=== PATIENT | female | born 1960 ===

== ENCOUNTER 2020-04-21 13:12 | Outpatient (REF) | payer BC, SELFPAY ==
[2020-04-21 15:55] LABS: Anion Gap 13 (12-20); Blood Urea Nitrogen 14 mg/dL (9-16); Calcium 9.9 mg/dL (8.4-10.2); Carbon Dioxide 30 mmol/L (22-29); Chloride 103 mmol/L (96-108); Estimated Glomerular Filt Rate > 60; Glucose Random 90 mg/dL (60-115); Lactate Dehydrogenase 239 U/L (122-220); Magnesium 2.3 mg/dL (1.6-2.6); Potassium 4.7 mmol/L (3.3-5.1); Sodium 141 mmol/L (135-145)
[2020-04-21 16:23] LABS: Erythrocyte Sedimentation Rate 8 MM/HR (0-20)
[2020-04-24 12:56] LABS: Anti Nuclear Antibody Screen NEGATIVE (NEGATIVE)
== END 2020-04-21 13:13 | disposition home or self-care (01) ==
LOC: HO.LAB 13:12
PROVIDERS: PCP Internal Medicine; Visit Provider Hospitalist
DX: R06.6 Hiccough (principal); G24.4 Idiopathic orofacial dystonia; R91.8 Other nonspecific abnormal finding of lung field; R07.9 Chest pain, unspecified; Z79.899 Other long term (current) drug therapy; Z87.891 Personal history of nicotine dependence
CPT/HCPCS: 36415; 80048; 82550; 83615; 83735; 85652; 86038; 86039

== ENCOUNTER → 2020-05-26 09:44 | Outpatient (BNVA) | payer BC, SELFPAY | PROVIDERS: PCP Internal Medicine; Visit Provider Hospitalist | DX: R07.9 Chest pain, unspecified (principal) ==

== ENCOUNTER → 2020-08-07 15:04 | Outpatient (BNVA) | payer BC, SELFPAY | PROVIDERS: PCP Internal Medicine; Visit Provider Hospitalist | DX: R07.9 Chest pain, unspecified (principal) ==

== ENCOUNTER 2020-08-15 15:34 | Outpatient (REF) | payer BC, SELFPAY ==
--- NOTE | 2020-08-15 17:22 | PFT_ITS ---
Forced vital capacity, FEV1, RLP06-35, and MVV are all normal. Post bronchodilator therapy, there is no significant change. Total lung capacity and residual volume normal. Diffusion capacity normal. CONCLUSION: Normal pulmonary function test. No evidence of obstructive or restrictive pulmonary disorder. Adelita Elizondo MD MSB/MODL / [id number]
== END 2020-08-15 15:35 | disposition home or self-care (01) ==
LOC: HO.RESP 15:34
PROVIDERS: PCP Internal Medicine; Visit Provider Hospitalist
DX: J44.9 Chronic obstructive pulmonary disease, unspecified (principal)
CPT/HCPCS: 94060; 94727; 94729

== ENCOUNTER → 2021-04-27 14:41 | Outpatient (BNVA) | payer BC, SELFPAY | PROVIDERS: PCP Internal Medicine; Visit Provider Hospitalist ==

== ENCOUNTER 2022-04-29 11:17 | Outpatient (REF) | payer BC, SELFPAY ==
[2022-04-29 12:21] LABS: MANUAL DIFF FLAG NO
[2022-04-29 12:29] LABS: Basophils Absolute Auto 0.1 X10*3/uL (0.0-0.2); Eosinophils Absolute Auto 0.1 X10*3/uL (0.0-0.4); Eosinophils Percent Auto 1.3 % (0-4); Hematocrit 41.1 % (37.0-47.0); Hemoglobin 13.7 g/dl (12.0-16.0); Imm Gran Abs Auto 0.01 X10*3/uL (0.00-0.03); Imm Gran Pct Auto 0.2 % (0.0-0.4); Lymphocytes Absolute Auto 1.6 X10*3/uL (1.2-4.9); Lymphocytes Percent Auto 30.7 % (20-40); Mean Corpuscular HGB Conc 33.3 g/dl (31.0-35.0); Mean Corpuscular Hemoglobin 31.6 pg (27.0-33.0); Mean Corpuscular Volume 94.7 fL (80.0-98.0); Monocytes Absolute Auto 0.3 X10*3/uL (0.1-1.2); Monocytes Percent Auto 6.1 % (2-11); Neutrophils Absolute Auto 3.2 x10*3/uL (2.0-8.3); Neutrophils Percent Auto 60.7 % (45-73); Platelet Count 303 X10*3/uL (160-400); Red Blood Count 4.34 X10*6/uL (4.20-5.50); Red Cell Distribution Width 11.9 % (11.0-16.0); White Blood Count 5.2 X10*3/uL (4.8-10.8)
[2022-04-29 12:49] LABS: D Dimer High Sensitivity < 150 NG/ML
[2022-04-29 13:14] LABS: Erythrocyte Sedimentation Rate 6 MM/HR (0-20)
[2022-04-29 13:25] LABS: Anion Gap 7 (12-20); Blood Urea Nitrogen 14 mg/dL (9-16); Calcium 9.2 mg/dL (8.4-10.2); Carbon Dioxide 29 mmol/L (22-29); Chloride 107 mmol/L (96-108); Estimated Glomerular Filt Rate > 60; Glucose Random 87 mg/dL (60-115); Potassium 4.4 mmol/L (3.3-5.1); Sodium 139 mmol/L (135-145)
[2022-05-01 07:34] LABS: Scleroderma 70 Antibody <1.0 NEG AI (<1.0 NEG)
[2022-05-03 15:08] LABS: Anti Nuclear Antibody Screen NEGATIVE (NEGATIVE)
== END 2022-04-29 11:18 | disposition home or self-care (01) ==
LOC: HO.LAB 11:17
PROVIDERS: PCP Physician Assistant; Visit Provider Hospitalist
DX: R07.81 Pleurodynia (principal)
CPT/HCPCS: 36415; 80048; 85025; 85379; 85652; 86038; 86039; 86235

== ENCOUNTER → 2022-07-09 10:18 | Outpatient (BNVA) | payer BC, SELFPAY | PROVIDERS: PCP Physician Assistant; Visit Provider Hospitalist | DX: R07.81 Pleurodynia (principal) ==

== ENCOUNTER 2022-12-31 16:00 | Outpatient (AMB) | payer BC, SELFPAY ==
[2022-12-31 16:12] VITALS: BP 112/62; PULSE 69; O2SAT 100; BMI 22.7
--- NOTE | 2022-12-31 16:12 | MHC.OFFVIS ---
Intake Vital Signs 12/31/22 16:12 Height 5 ft 3 in Weight 128 lb BMI 22.7 BP 112/62 Blood Pressure Location Lt brachial Position Sitting Pulse 69 Pulse Oximetry (%) 100 Oxygen Delivery Method Room Air Intake Visit Reasons: COPD Correctional Supervisor: Correctional Supervisor offered & declined Accompanied by: Self / Same As Patient Allergies No Known Allergies Allergy (Verified 12/31/22 16:18) Medication List - Last Reconciled 12/31/22 by Briana Arredondo LPN cholecalciferol (vitamin D3) 25 mcg PO DAILY lactobacillus combination no.9 (Adult 50 Plus Probiotic) 4,000 mmu cells PO DAILY HPI COPD HPI Details Luz Maria is a pleasant 62 year old female, former smoker, followed for COPD, pulmonary nodules and dystonia of jaw receiving botox. At baseline she is controlled without any respiratory medications. Today she presents for an acute visit. She reports having COVID in November then diagnosed with bronchitis three weeks later and then prescribed prednisone as well as an ICS with persistent symptoms. She was seen at urgent care, CXR revealed a patchy right lung base infiltrate and started on vantin and azithromycin. She does not feel back to baseline, continuing with fatigue. She also reports persistent discomfort of the left chest that has been ongoing for over a year. She reports cardiac evaluation which was unremarkable and has an upcoming mammogram with ultrasound, as the area is just below her left breast with noted thickening of breast tissue. [facility] Medical History (Updated 01/14/23 @ 09:15 by Danitza Brantley NP) Dystonia Spasm of diaphragm COPD (chronic obstructive pulmonary disease) Pulmonary nodules Personal history of nicotine dependence Chest pain Hyperlipidemia Coronary artery calcification Mild ascending aorta dilatation History of bacterial meningitis in childhood Surgical History (Updated 12/26/22 @ 11:01 by Kayleigh Reardon PA-C) History of knee surgery History of carpal tunnel surgery of left wrist History of shoulder replacement History of 2 sections (Updated 12/31/22 @ 16:21 by Briana Arredondo LPN) Patient Tobacco Use Status: Former Tobacco user Tobacco use type: Cigarette Years Smoked: 17 years old Smoked in Last 30 Days: No Review of Systems ENT Reports Normal hearing present Neuro Reports Normal hearing present Physical Exam Vital Signs: Last Vital Signs Pulse 69 12/31/22 16:12 BP 112/62 12/31/22 16:12 Pulse Ox 100 12/31/22 16:12 Oxygen Delivery Method Room Air 12/31/22 16:12 BMI result Body Mass Index 22.7 Const General: cooperative, healthy appearing, comfortable, no acute distress, well developed and alert Orientation/consciousness: patient oriented x3 Limitations: no limitations HEENT Head: Yes normal to inspection, Yes normocephalic and Yes atraumatic Ears: hearing grossly normal bilaterally and external ears normal Eyes General: appearance normal, both eyes and all related structures Eyelids: Yes eyelids normal Sclerae: sclerae normal EOM: EOMs intact bilaterally Neck Neck: Yes normal visual inspection and Yes no lymphadenopathy Lymphatic: no lymphadenopathy noted Chest Other: thickened skin and discomfort with palpation of left lower breast 6 oclock, compared to right, no erythema noted Chest palpation & inspection: normal inspection of the chest Resp Effort & Inspection: normal respiratory effort, able to speak in complete sentences, no audible wheezes, no cough, no stridor, not tachypneic, no tripod positioning and no use of accessory muscles Auscultation: clear to auscultation bilaterally Cardio Jugular venous distension: no JVD Rate: regular rate Rhythm: regular rhythm Skin Other: warm, dry General skin exam: no rashes or lesions noted Neuro General: patient oriented x3 Cranial nerves: Yes Normal hearing present Cognition (Neuro): normal cognition Gait exam (Neuro): Normal gait present Extrem General: Yes normal to inspection, Yes capillary refill normal, Yes no clubbing, cyanosis or edema and Yes no pedal edema Psych Appearance: grossly normal and well kempt Speech and movement: Normal speech and movement present and Clear speech present Affect: normal affect Attitude: cooperative Thought process: Normal thought process present Thought content: Normal thought content present Insight: Good insight present (Psych) Judgement: Good judgement present (Psych) Assessment & Plan Assessment & Plan (1) COPD (chronic obstructive pulmonary disease): Code(s): J44.9 - Chronic obstructive pulmonary disease, unspecified Qualifiers: COPD type: emphysema Emphysema type: centrilobular Qualified Code(s): J43.2 - Centrilobular emphysema (2) Pulmonary nodules: Code(s): R91.8 - Other nonspecific abnormal finding of lung field (3) Dystonia: Code(s): G24.9 - Dystonia, unspecified Plan At this time, exam unremarkable and was treated with antibiotics/prednisone. Lungs sound clear. Advised patient to start ICS inhaler prescribed by urgent care for the next few weeks. If no improvements, call office. In regards to left chest discomfort, discussed importance of obtaining mammogram/ultrasound due to thickening and reproducible pain. If worsens, advised to seek emergent care. Will also obtain chest CT report from [facility] and upload to our system. All questions were answered and patient is in agreement of plan. Will follow up for regularly scheduled appointment with Dr. Griffin or sooner if needed. Coding Level of Care Code Est Pt Level 4 (98637) Diagnoses Centrilobular emphysema J43.2 COPD type: emphysema Emphysema type: centrilobular Pulmonary nodules R91.8 Dystonia G24.9
== END 2022-12-31 16:49 | disposition home or self-care (01) ==
PROVIDERS: PCP Physician Assistant; Visit Provider Nurse Practitioner Family
DX: J43.2 Centrilobular emphysema (principal); R91.8 Other nonspecific abnormal finding of lung field; G24.9 Dystonia, unspecified
CPT/HCPCS: 99214

== ENCOUNTER → 2022-12-31 16:00 | Outpatient (BNVA) | payer BC, SELFPAY | PROVIDERS: PCP Physician Assistant; Visit Provider Nurse Practitioner Family ==

== ENCOUNTER 2023-02-21 15:25 | Outpatient (AMB) | payer BC, SELFPAY ==
[2023-02-21 15:32] VITALS: PULSE 74; O2SAT 96; BMI 22.5
--- NOTE | 2023-02-21 15:32 | MHC.OFFVIS ---
Intake Vital Signs 02/21/23 15:32 Height 5 ft 3 in Weight 127 lb BMI 22.5 Pulse 74 Pulse Source Pulse Oximeter Pulse Oximetry (%) 96 Oxygen Delivery Method Room Air Intake Visit Reasons: COPD Allergies No Known Allergies Allergy (Verified 02/21/23 15:33) HPI HPI Comments History of Present Illness Details The patient is a 62-year-old woman with a known history of pulmonary nodules and history of smoking history with a new diagnosis of dystonia that she has been dealing with currently getting Botox shot to her jaw. When she walks a goes up hills or flights of stairs she does get more shortness of breath. It a becomes that her dystonia causes more shifting of her jaw and to some degree obstructing the upper airway causing her to have a hard time with her breathing due to increased resistance. She does use a mouth guard due to her grinding. We did look at her CT scan of the chest that she had back in March 2019 this was a low-dose steroid radiation CT scan demonstrated no evidence of any lymphadenopathy and she does have bilateral pulmonary nodules. Based on the fact that the have been stable she will get a CT scan in a year's time. In the office we did do spirometry demonstrating normal flow volume loop without any evidence of any dynamic extrathoracic or intrathoracic obstruction at this time. 11/01/2019 The patient is here for pulmonary follow-up visit. Overall the patient has been doing relatively well. However, she has been complaining of some left-sided chest discomfort. It is reproducible on his right over the rib below her left breast. She had a bone scan done which picked up some increased activity but a right rib was likely due to trauma. She did have a CT scan of the chest back in May 2019 that did not show any abnormalities in that area. Her pulmonary nodules have been stable. She is following the lung cancer screening program and is scheduled to have a repeat CAT scan May 2020. She also complains of some discomfort primarily around the diaphragmatic area. She is wondering if is her diaphram. She also has a history of dystonia. Explained to her she can use some baclofen. She does have some home she will consider starting that at this time for diaphragmatic spasms. 04/21/2020 the patient is here for pulmonary follow-up visit. She continues to have the same ongoing issues. Significant anabel facial dystonia involving the oral mandibular area on her left side. Also when she exercises primarily a aerobic her dystonia gets worse and also has a hard time with her breathing. She did have an evaluation by ENT and laryngoscopy did not demonstrate any laryngeal spasms at rest. However, they could potentially having with activity as her symptoms worsen with activity. She has been getting Botox to her face but does not feel like she is getting any significant improvement. If anything she feels a little bit worse. She is considering stopping the therapy. She is also using back up from. She has been complaining of some chest discomfort bilaterally primarily in the lower part of her chest. I do believe that this may be diaphragmatic spasms. She has not gotten any relief meds medications. We did think about although alternative medications we can use for her diaphragmatic spasm such as calcium channel blockers or neuroleptic medications. At this point will try the calcium channel blockers at low dose monitor closely her heart rate and blood pressure. Patient did have a CT scan of the chest demonstrating stable pulmonary nodules. No pathological process to explain chest discomfort at this time. 05/26/2020 the patient is here for pulmonary follow-up visit. Since we last spoke she had a follow-up with her primary care doctor because of ongoing epigastric discomfort. She did have a CT scan demonstrated some thickening of the esophagus area. She will be undergoing endoscopy soon. With all the medical issues she did not have enough time to start the calcium channel celine. She actually took it for about a day. Based on her ongoing GI evaluation he should hold off on the calcium channel celine in case it masks any findings esophageal dysmotility. In the meantime the patient is having difficulty sleeping at nighttime. She is still concerned about the significant spasms. Therefore will try some Neurontin to see if this helps with dystonia specially with her significant discomfort the area of the diaphragms suggesting some degree of diaphragmatic spasms. The Neurontin hopefully will help with the symptoms and also helpful with her sleep quality. 08/07/2020 the patient is here for pulmonary follow-up visit. Her symptoms continue to persist. She is complaining of significant shortness of breath with activity. She is wondering if she has any evidence of any emphysema that could be contributing to her symptoms. We did review her CT scan demonstrating some mild emphysema. Although is minimal and is unlikely to be playing a role it is reasonable to treat her for obstructive airway disease and air trapping. We did talk about different methods to control her breathing when exercising such as pursed lip breathing or using a straw. In the meantime it is reasonable to try Anoro as a long-acting bronchodilator to see if there is any improvement in her dyspnea symptoms with activity. Explained to her that I do believe that her upper airway obstruction due to the dystonia is likely playing a significant role and then ultimately resulting in potential breath stacking if she does have tachypnea. Initially she was reluctant to try gabapentin as she tried it in the past. But I do believe that a small dose specially at nighttime will be tolerable to her specially if she gives it enough time to overcome the initial adverse effects. Therefore she is willing to start small dose which she can then increase if she can not tolerated up to 200 mg. At this point will have her come back and undergo pulmonary function studies with her follow-up visit. 04/27/2021 the patient is here for a pulmonary follow-up visit. Overall she is about the same. She continues to exercise regularly. Although becomes very short of breath with activity. Partly because of her dystonia resulting in a upper airway resistance causing increased work of breathing. Lung capacity otherwise is within normal limits. She does have underlying pulmonary nodules and history of smoking in the past. Patient's CT scan done [facility] back in 2020 demonstrating no significant changes in her pulmonary nodules which are very small and likely benign. The patient has been working with different providers regarding her dystonia. Currently getting Botox to see if this provides some benefit. In the meantime she has tried alternative therapies as well as muscle relaxants. She is considering using cannabinoids. I did recommend that if she does use she should not smoke it. She can consider tinctures and she should also consider having it without any THC which is the hallucinogenic component. 04/29/2022 the patient is here for a pulmonary follow-up visit. The patient feels like she is getting worse. Complaining of rib discomfort in addition to the inability to expand her lower ribcage. She has some discomfort primarily on the left lower area where she feels like the ribs are hoping out a little bit. The patient has worse symptoms typically in the morning when she wakes up. She also has a hard time making on her left side. In addition to this the patient complains right antecubital pain. She feels like her veins are inflamed. I do not feel a cord in a see any erythema to suggest superficial thrombophlebitis. But, will request a D-dimer in addition to additional blood work looking for other inflammatory conditions. She may have a lot of musculoskeletal issues that are affecting her typically in the morning. I do believe to that her diaphragms may be having episodes of spasms back in given that sensation of discomfort. The patient does have dystonia. Will trial a short course of prednisone to see if we can provide some anti-inflammatory effect of that area. The patient also undergo her blood work. I will let her know the results. In addition to that she recently had a CT scan of the chest. I am requesting the report. She does have pulmonary nodules and based on the lung cancer screening program she is scheduled for the CT scan in a year's time which is reassuring. We did talk about different herbal remedies that she can try such as taking turmeric. In addition to that she is having hard time sleeping. She was given a sleep aid from her primary care doctor although she has not tried as of yet. 07/09/2022 the patient is here for pulmonary follow-up visit. She continues to be about the same. She did have a upper GI series at [facility] where demonstrated that she probably has a small hiatal hernia and also possibly esophagitis and gastritis along with a potential small peptic ulcer. The patient is no longer taking prednisone she will need to go for brief course. In addition to that the patient had been using NSAIDs specially at nighttime. When she understands that she should use those for now. She does have a follow-up with her GI specialist. In the meantime her CT scan of the chest was done at [facility] and is not demonstrating any significant changes when compared to previous. She does have some thickening of the pleura and some nodules are stable. The patient continues to have the issues with dystonia that is causing an upper airway dynamic obstruction when she exercises at least with aerobic exercise. Even while using the Will Botox. One option to the patient is to use a oral mandibular device to main thetain patency of her upper airway without obstructing it. The patient is also having insomnia. Typically able to fall asleep but then wakes up in the middle the night and can not get back to sleep. She has been [id number] sleep aids. The patient is willing to try trazodone. Will give her small dose that she can use see this is better as far as providing better sleep hygiene. 02/21/2023 the patient is here for a pulmonary follow-up visit. The patient overall is no better. She continues to have the significant shortness of breath with Exertion. She has a hard time in the gym. I do believe that most of her symptoms are due to the distal new resulting in a dynamic upper airway obstruction. She has already had if will cardiac workup. She was severity evaluated by GI without any significant findings. The patient has been describing also some right and left upper abdominal discomfort, but, now migrating now more in the epigastric area and xiphoid area. The area is very tender. When she does cross training becomes very uncomfortable at times. It appears to be musculoskeletal as well. It is pretty much reproducible my examination suggesting that is costochondritis. During the office visit we did go for a walking oximetry test we did go 5 flights of stairs. The patient was able to complete the 5 flights although she was winded with dyspnea score of 7/10. Pulse ox is stable she definitely had the facial dystonia during the increase exercise. Heart rate did increase to 130 beats per minute which may also be contributing. At this point the patient would like to get answers. Will go ahead and request an exercise tolerance test at [facility]. In addition to that she does wake up short of breath. She does have increased daytime drowsiness with an Eastman score of 10/24. Will go ahead and request a home sleep study at this time. [facility] Medical History (Updated 02/23/23 @ 22:51 by Luis Griffin MD) Costochondritis Dystonia Spasm of diaphragm COPD (chronic obstructive pulmonary disease) Pulmonary nodules Personal history of nicotine dependence Chest pain Hyperlipidemia Coronary artery calcification Mild ascending aorta dilatation History of bacterial meningitis in childhood Surgical History (Updated 12/26/22 @ 11:01 by Kayleigh Reardon PA-C) History of knee surgery History of carpal tunnel surgery of left wrist History of shoulder replacement History of 2 sections Social History (Updated 12/31/22 @ 16:21 by Briana Arredondo LPN) Patient Tobacco Use Status: Former Tobacco user Tobacco use type: Cigarette Years Smoked: 17 years old Review of Systems Const Reports daytime sleepiness, Reports difficulty sleeping and Denies night sweats ENT Denies change in voice, Reports facial pain, Denies lip swelling, Denies mouth pain, Reports nasal congestion, Reports nasal discharge, Reports neck pain and Denies tongue swelling Card Reports chest pain, Reports dyspnea and Reports dyspnea on exertion Resp Reports cough, Reports dyspnea and Reports dyspnea on exertion GI Reports abdominal pain, Reports GI cramping and Reports dyspepsia Musc Denies no additional complaints and Reports neck pain Neuro Denies Neuro-related abnormal movements Psych Denies no additional complaints Josse/Lymph Denies easy bleeding and Denies lymphadenopathy Aller/Immun Denies lip swelling and Denies tongue swelling Physical Exam Vital Signs: Last Vital Signs Pulse 74 02/21/23 15:32 Pulse Ox 96 02/21/23 15:32 Oxygen Delivery Method Room Air 02/21/23 15:32 BMI result Body Mass Index 22.5 Const General: alert HEENT Head: Yes other (facial dystonic, severe with activity) Neck Neck: Yes normal visual inspection, Yes full ROM and Yes no lymphadenopathy Chest Chest palpation & inspection: localized rib tenderness with anteroposterior compression Resp Auscultation: clear to auscultation bilaterally Cardio Rate: regular rate Rhythm: regular rhythm Heart sounds: S1 normal heart sound present and S2 normal heart sound present GI Palpation (GI): Soft to palpation and nontender Auscultation: normal bowel sounds Skin General skin exam: rashes and/or lesions noted Assessment & Plan Assessment & Plan (1) COPD (chronic obstructive pulmonary disease): Code(s): J44.9 - Chronic obstructive pulmonary disease, unspecified Qualifiers: COPD type: emphysema Emphysema type: centrilobular Qualified Code(s): J43.2 - Centrilobular emphysema (2) Pulmonary nodules: Code(s): R91.8 - Other nonspecific abnormal finding of lung field (3) Dystonia: Code(s): G24.9 - Dystonia, unspecified (4) Costochondritis: Code(s): M94.0 - Chondrocostal junction syndrome [Tietze] Plan OTC analgesics for MS pain CPET to address her on going dyspnea, getting worse. Dystonic likely contributing CT chest to address her pulmonary nodules PSG to assess GILMAR and daytime drowsiness F/U 3-4 months Orders: Orders CT chest wo IV con 04/28/23 R91.8 - Other nonspecific abnormal finding of lung field CA cardiopulmonary stress test Today R06.00 - Dyspnea, unspecified RT home sleep study Today G47.33 - Obstructive sleep apnea (adult) (pediatric) Medications: New prednisone 20 mg PO DAILY 10 tabs 0RF 10 days R91.8 - Other nonspecific abnormal finding of lung field Coding Level of Care Code Est Pt Level 4 (09160) Diagnoses Centrilobular emphysema J43.2 COPD type: emphysema Emphysema type: centrilobular Pulmonary nodules R91.8 Dystonia G24.9 Costochondritis M94.0 Time Spent (min) 22
== END 2023-02-21 16:01 | disposition home or self-care (01) ==
PROVIDERS: PCP Physician Assistant; Visit Provider Hospitalist
DX: J43.2 Centrilobular emphysema (principal); R91.8 Other nonspecific abnormal finding of lung field; G24.9 Dystonia, unspecified; M94.0 Chondrocostal junction syndrome [Tietze]
CPT/HCPCS: 99214

== ENCOUNTER → 2023-02-21 15:25 | Outpatient (BNVA) | payer BC, SELFPAY | PROVIDERS: PCP Physician Assistant; Visit Provider Hospitalist ==

== ENCOUNTER → 2023-04-17 07:52 | Outpatient (REF) | payer BC, SELFPAY | LOC: HO.SL 07:52 | PROVIDERS: PCP Physician Assistant; Visit Provider Hospitalist | DX: G47.33 Obstructive sleep apnea (adult) (pediatric) (principal) | CPT/HCPCS: 95806 ==

== ENCOUNTER → 2023-04-17 08:11 | Outpatient (BNV) | payer BC, SELFPAY | PROVIDERS: PCP Physician Assistant; Visit Provider Internal Medicine | DX: R06.83 Snoring (principal) | CPT/HCPCS: 95806 ==

== ENCOUNTER 2023-04-21 10:29 | Outpatient (REF) | payer BC, SELFPAY ==
--- NOTE | ~2023-04-21 | CT_ITS ---
EXAMINATION: CT CHEST WITHOUT CONTRAST CLINICAL INFORMATION: Other nonspecific abnormal finding of lung field COMPARISON: Previous chest CT February 2016 TECHNIQUE: Multidetector volumetric CT imaging of the chest was done. Axial MIP volume rendering provided. Sagittal and coronal reformatted images were obtained. This CT examination was performed using dose optimization techniques as appropriate, variously including the following: *Automated exposure control *Adjustment of mA and/or kV according to patient size (this includes techniques or standardized protocols for targeted exams where dose is matched to indication/reason for exam; i.e. extremities or head) *Use of iterative reconstruction technique DLP: 227 mGy-cm FINDINGS: LUNGS: 3 mm right upper lobe nodule axial image 180 series 5. 2 x 5 mm peripheral or subpleural right middle lobe nodule adjacent to the minor fissure axial image 292 series 5. 3 mm groundglass attenuation left upper lobe nodule axial image 97 series 5. These are stable from February 2016 exam. No new pulmonary nodule. No evidence of an edema and show lung disease or bronchiectasis. No endobronchial or endotracheal lesion. MEDIASTINUM: The mediastinum is normal. CORONARY ARTERY CALCIFICATION: Mild coronary artery and aortic valve PLEURA: There is no pleural effusion. No pleural mass or thickening. Small right posterior diaphragmatic hernia containing. AXILLA: No lymphadenopathy. UPPER ABDOMEN: Unremarkable. OSSEOUS STRUCTURES: Orthopedic hardware in the right shoulder. Mild degenerative changes of the spine. CT/CT chest wo IV con IMPRESSION: Stable small pulmonary nodules, largest measuring 2 x 5 mm in the right middle lobe, from [address] scan. No additional chest CT follow-up of pulmonary nodules recommended. Fleischner guidelines were followed.
== END 2023-04-21 10:30 | disposition home or self-care (01) ==
LOC: HO.CT 10:29
PROVIDERS: PCP Physician Assistant; Visit Provider Hospitalist
DX: R91.8 Other nonspecific abnormal finding of lung field (principal)
CPT/HCPCS: 71250

== ENCOUNTER 2023-05-16 15:39 | Outpatient (AMB) | payer BC, SELFPAY ==
[2023-05-16 15:42] VITALS: PULSE 64; O2SAT 99; BMI 22.7
--- NOTE | 2023-05-16 15:42 | MHC.OFFVIS ---
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 When she walks a goes up hills or flights of stairs she does get more shortness of breath. It a becomes that her dystonia causes more shifting of her jaw and to some degree obstructing the upper airway causing her to have a hard time with her breathing due to increased resistance. She does use a mouth guard due to her grinding. We did look at her CT scan of the chest that she had back in March 2019 this was a low-dose steroid radiation CT scan demonstrated no evidence of any lymphadenopathy and she does have bilateral pulmonary nodules. Based on the fact that the have been stable she will get a CT scan in a year's time. In the office we did do spirometry demonstrating normal flow volume loop without any evidence of any dynamic extrathoracic or intrathoracic obstruction at this time. 02/21/2023 the patient is here for a pulmonary follow-up visit. The patient overall is no better. She continues to have the significant shortness of breath with Exertion. She has a hard time in the gym. I do believe that most of her symptoms are due to the distal new resulting in a dynamic upper airway obstruction. She has already had if will cardiac workup. She was severity evaluated by GI without any significant findings. The patient has been describing also some right and left upper abdominal discomfort, but, now migrating now more in the epigastric area and xiphoid area. The area is very tender. When she does cross training becomes very uncomfortable at times. It appears to be musculoskeletal as well. It is pretty much reproducible my examination suggesting that is costochondritis. During the office visit we did go for a walking oximetry test we did go 5 flights of stairs. The patient was able to complete the 5 flights although she was winded with dyspnea score of 7/10. Pulse ox is stable she definitely had the facial dystonia during the increase exercise. Heart rate did increase to 130 beats per minute which may also be contributing. At this point the patient would like to get answers. Will go ahead and request an exercise tolerance test at [facility]. In addition to that she does wake up short of breath. She does have increased daytime drowsiness with an [place] score of 10/24. Will go ahead and request a home sleep study at this time. 05/16/2023 the patient is here for a pulmonary follow-up visit. She continues to have dyspnea on exertion. moderate severity. In part has do with her dystonia limiting her upper ventilation. She did undergo a cardiopulmonary exercise tolerance test at [facility]. She did wear a mouthpiece. While wearing the mouthpiece she did feel like she could actually exercise longer than usual which is reassuring. Although she did not meet her aerobic capacity. The biggest limitation was more of a cardiovascular limitation. The heart rate the not reach peak in yet, but, the patient could no longer exercise as she did her maximum exercise capacity. She had plenty of pulmonary reserve suggesting that it was not a pulmonary limitation. Again, the mouthpiece did help her breathing. I did provide her a mouth guard that she can use while exercising in the home that will allow her upper airway to stay patent while she develops significant dystonia. She does have a bell valet. She recently was seen by bell valet. And from a cardiac standpoint seems like the patient is doing well. In view of the abnormal cardiopulmonary exercise tolerance test, however, consider repeating her cardiac stress test potentially a nuclear stress test to further follow-up the abnormal findings. The patient also continues to have chest discomfort. Appears to be musculoskeletal in nature. I suspect that probably would be related to diaphragmatic spasms. Although, now appears to be migrating up. I will request a bone scan to see if there is any skeletal etiologies to explain her chest discomfort at this time. [facility] Medical History (Updated 02/23/23 @ 22:51 by Luis Griffin MD) Costochondritis Dystonia Spasm of diaphragm COPD (chronic obstructive pulmonary disease) Pulmonary nodules Personal history of nicotine dependence Chest pain Hyperlipidemia Coronary artery calcification Mild ascending aorta dilatation History of bacterial meningitis in childhood Surgical History (Updated 12/26/22 @ 11:01 by Kayleigh Reardon PA-C) History of knee surgery History of carpal tunnel surgery of left wrist History of shoulder replacement History of 2 sections Social History (Updated 12/31/22 @ 16:21 by Briana Arredondo LPN) Patient Tobacco Use Status: Former Tobacco user Tobacco use type: Cigarette Years Smoked: 17 years old Review of Systems Const Reports difficulty sleeping and Denies night sweats ENT Denies change in voice, Reports facial pain, Denies lip swelling, Denies mouth pain, Reports nasal congestion, Reports nasal discharge, Reports neck pain and Denies tongue swelling Card Reports chest pain, Reports dyspnea and Reports dyspnea on exertion Resp Reports cough, Reports dyspnea and Reports dyspnea on exertion GI Reports abdominal pain, Reports GI cramping and Reports dyspepsia Musc Denies no additional complaints and Reports neck pain Neuro Denies Neuro-related abnormal movements Psych Denies no additional complaints Josse/Lymph Denies easy bleeding and Denies lymphadenopathy Aller/Immun Denies lip swelling and Denies tongue swelling Physical Exam Vital Signs: Last Vital Signs Pulse 64 05/16/23 15:42 Pulse Ox 99 05/16/23 15:42 Oxygen Delivery Method Room Air 05/16/23 15:42 BMI result Body Mass Index 22.7 Const General: alert HEENT Head: Yes other (facial dystonic, severe with activity) Neck Neck: Yes normal visual inspection, Yes full ROM and Yes no lymphadenopathy Chest Chest palpation & inspection: localized rib tenderness with anteroposterior compression Resp Auscultation: clear to auscultation bilaterally Cardio Rate: regular rate Rhythm: regular rhythm Heart sounds: S1 normal heart sound present and S2 normal heart sound present GI Palpation (GI): Soft to palpation and nontender Auscultation: normal bowel sounds Skin General skin exam: rashes and/or lesions noted Assessment & Plan Assessment & Plan (1) COPD (chronic obstructive pulmonary disease): Code(s): J44.9 - Chronic obstructive pulmonary disease, unspecified Qualifiers: COPD type: emphysema Emphysema type: centrilobular Qualified Code(s): J43.2 - Centrilobular emphysema (2) Pulmonary nodules: Code(s): R91.8 - Other nonspecific abnormal finding of lung field (3) Dystonia: Code(s): G24.9 - Dystonia, unspecified (4) Costochondritis: Code(s): M94.0 - Chondrocostal junction syndrome [Tietze] (5) Chest pain: Code(s): R07.9 - Chest pain, unspecified Qualifiers: Chest pain type: pleurodynia Qualified Code(s): R07.81 - Pleurodynia Plan CPET to address her on going dyspnea demonstrated a cardiovascular limitation. Would make sure to f/u with cardiology and consider undergoing a nuclear stress test. CT chest noted stable pulmonary nodules PSG was normal requesting a bone scan to assess chest pain mouth piece provided wto use while exercising F/U 3-4 months Orders: Orders NM bone scan whole body 05/16/23 R07.9 - Chest pain, unspecified Coding Level of Care Code Est Pt Level 4 (26835) Diagnoses Centrilobular emphysema J43.2 COPD type: emphysema Emphysema type: centrilobular Pulmonary nodules R91.8 Dystonia G24.9 Costochondritis M94.0 Pleurodynia R07.81 Chest pain type: pleurodynia Time Spent (min) 20
== END 2023-05-19 09:36 | disposition home or self-care (01) ==
PROVIDERS: PCP Physician Assistant; Visit Provider Hospitalist
DX: J43.2 Centrilobular emphysema (principal); R91.8 Other nonspecific abnormal finding of lung field; G24.9 Dystonia, unspecified; M94.0 Chondrocostal junction syndrome [Tietze]; R07.81 Pleurodynia
CPT/HCPCS: 99214

== ENCOUNTER → 2023-05-16 15:39 | Outpatient (BNVA) | payer BC, SELFPAY | PROVIDERS: PCP Physician Assistant; Visit Provider Hospitalist ==

== ENCOUNTER → 2023-07-18 10:54 | Outpatient (REF) | payer BC, SELFPAY ==
--- NOTE | ~2023-07-18 | NM_ITS ---
EXAMINATION: NM BONE SCAN OF THE WHOLE BODY CLINICAL INFORMATION: Chest pain, unspecified. COMPARISON: No previous bone scan or recent radiographs are available for comparison. The diagnostic CT scan of the chest dated 06/21/2023, is available for comparison. TECHNIQUE: Multiple gamma scintillation camera images of the whole body were performed 3 hours following the intravenous administration of 23 mCi Tc-99m MDP. FINDINGS: In the head, no significant abnormalities are present. In the thoracic cage and upper extremities, a photopenic defect from a well-healed right total shoulder prosthesis is noted. There is minimally increased activity adjacent to this in the glenoid fossa region of the right scapula and very faintly at the distal tip of the humeral stem. There is minimally increased activity in the sternoclavicular and acromioclavicular joints bilaterally. No rib abnormalities are present. In the spine, a very minimal thoracolumbar scoliosis is present with lumbar convexity to the right. There is faintly increased activity in the left posterior elements at the L4-L5 level, probably due to facet arthropathy. In the pelvis, no significant abnormalities are present. In the lower extremities, foci of mildly increased activity are present in the patellae bilaterally and mildly in a small focus in the medial aspect of the intercondylar notch of the right femur. Very faint foci which are just barely perceptible are present at small sites in the proximal feet bilaterally. No other definite bony abnormalities are noted. The urinary bladder and faint visualization of both kidneys are noted. NM/NM bone scan whole body IMPRESSION: A few minimal nonspecific abnormalities are noted as described above and these are all likely arthritic or traumatic in etiology. None of these abnormalities is strongly suspicious for metastatic disease. There are no rib abnormalities suspicious for an etiology of the patient's chest pain noted.
== END ==
LOC: HO.NUCMED 10:54
PROVIDERS: PCP Physician Assistant; Visit Provider Hospitalist
DX: R07.9 Chest pain, unspecified (principal)
CPT/HCPCS: 78306; A9503

== ENCOUNTER 2023-10-14 14:49 | Outpatient (AMB) | payer BC, SELFPAY ==
--- NOTE | 2023-10-14 14:51 | A.OFFVIS_ITS ---
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 When she walks a goes up hills or flights of stairs she does get more shortness of breath. It a becomes that her dystonia causes more shifting of her jaw and to some degree obstructing the upper airway causing her to have a hard time with her breathing due to increased resistance. She does use a mouth guard due to her grinding. We did look at her CT scan of the chest that she had back in March 2019 this was a low-dose steroid radiation CT scan demonstrated no evidence of any lymphadenopathy and she does have bilateral pulmonary nodules. Based on the fact that the have been stable she will get a CT scan in a year's time. In the office we did do spirometry demonstrating normal flow volume loop without any evidence of any dynamic extrathoracic or intrathoracic obstruction at this time. 02/21/2023 the patient is here for a pulmonary follow-up visit. The patient overall is no better. She continues to have the significant shortness of breath with Exertion. She has a hard time in the gym. I do believe that most of her symptoms are due to the distal new resulting in a dynamic upper airway obstruction. She has already had if will cardiac workup. She was severity evaluated by GI without any significant findings. The patient has been describi ng also some right and left upper abdominal discomfort, but, now migrating now more in the epigastric area and xiphoid area. The area is very tender. When she does cross training becomes very uncomfortable at times. It appears to be musculoskeletal as well. It is pretty much reproducible my examination suggesting that is costochondritis. During the office visit we did go for a walking oximetry test we did go 5 flights of stairs. The patient was able to complete the 5 flights although she was winded with dyspnea score of 7/10. Pulse ox is stable she definitely had the facial dystonia during the increase exercise. Heart rate did increase to 130 beats per minute which may also be contributing. At this point the patient would like to get answers. Will go ahead and request an exercise tolerance test at [facility]. In addition to that she does wake up short of breath. She does have increased daytime drowsiness with an [place] score of 10/24. Will go ahead and request a home sleep study at this time. 05/16/2023 the patient is here for a pulmonary follow-up visit. She continues to have dyspnea on exertion. moderate severity. In part has do with her dystonia limiting her upper ventilation. She did undergo a cardiopulmonary exercise tolerance test at [facility]. She did wear a mouthpiece. While wearing the mouthpiece she did feel like she could actually exercise longer than usual which is reassuring. Although she did not meet her aerobic capacity. The biggest limitation was more of a cardiovascular limitation. The heart rate the not reach peak in yet, but, the patient could no longer exercise as she did her maximum exercise capacity. She had plenty of pulmonary reserve suggesting that it was not a pulmonary limitation. Again, the mouthpiece did help her breathing. I did provide her a mouth guard that she can use while exercising in the home that will allow her upper airway to stay patent while she develops significant dystonia. She does have a waste machine offbearer. She recently was seen by waste machine offbearer. And from a cardiac standpoint seems like the patient is doing well. In view of the abnormal cardiopulmonary exercise tolerance test, however, consider repeating her cardiac stress test potentially a nuclear stress test to further follow-up the abnormal findings. The patient also continues to have chest discomfort. Appears to be musculoskeletal in nature. I suspect that probably would be related to diaphragmatic spasms. Although, now appears to be migrating up. I will request a bone scan to see if there is any skeletal etiol ogies to explain her chest discomfort at this time. 10/14/2023 the patient is here for a pulmonary follow-up visit. Overall she is doing okay. The mouthpiece did not help her. She still has a significant dystonia does affecting her exercise capacity. She does use Botox with partial improvement in addition to that she has been on baclofen. Still having some difficulties. she also been having left-sided lower chest discomfort likely diaphragmatic involvement. She did undergo a bone scan no evidence of any bone meds. She does have some areas of arthritis but nothing to explain her unde rlying chest pain. The patient also had CT scans of the chest without any parenchymal disease or pleural based disease to explain her chest pain. She also underwent a cardiopulmonary exercise tolerance test was reassuring. The weathers issue is mainly the upper airway obstruction due to the significant dystonia with exercise. The patient has not tried Flexeril. We can try small dose of Flexeril of 2.5-5 mg to try to help her with her significant muscle spasms with the hope that the small dose does not cause significant daytime drowsiness. If she does develop daytime drowsiness she is going to have to stop medicine the patient sure that drive or be driving while on Flexeril. [facility] Medical History (Updated 02/23/23 @ 22:51 by Luis Griffin MD) Costochondritis Dystonia Spasm of diaphragm COPD (chronic obstructive pulmonary disease) Pulmonary nodules Personal history of nicotine dependence Chest pain Hyperlipidemia Coronary artery calcification Mild ascending aorta dilatation History of bacterial meningitis in childhood Surgical History (Updated 12/26/22 @ 11:01 by Kayleigh Reardon PA-C) History of knee surgery History of carpal tunnel surgery of left wrist History of shoulder replacement History of 2 sections Social History (Updated 12/31/22 @ 16:21 by Briana Arredondo LPN) Patient Tobacco Use Status: Former Tobacco user Tobacco use type: Cigarette Years Smoked: 17 years old Review of Systems Const Reports difficulty sleeping and Denies night sweats ENT Denies change in voice, Reports facial pain, Denies lip swelling, Denies mouth pain, Reports nasal congestion, Reports nasal discharge, Reports neck pain and Denies tongue swelling Card Reports chest pain, Reports dyspnea and Reports dyspnea on exertion Resp Reports cough, Reports dyspnea and Reports dyspnea on exertion GI Reports abdominal pain, Reports GI cramping and Reports dyspepsia Musc Denies no additional complaints and Reports neck pain Neuro Denies Neuro-related abnormal movements Psych Denies no additional complaints Josse/Lymph Denies easy bleeding and Denies lymphadenopathy Aller/Immun Denies lip swelling and Denies tongue swelling Physical Exam Vital Signs: Last Vital Signs Pulse 66 10/14/23 14:52 Pulse Ox 99 10/14/23 14:52 Oxygen Delivery Method Room Air 10/14/23 14:52 BMI result Body Mass Index 22.7 Const General: alert HEENT Head: Yes other (facial dystonic, severe with activity) Neck Neck: Yes normal visual inspection, Yes full ROM and Yes no lymphadenopathy Chest Chest palpation & inspection: localized rib tenderness with anteroposterior compression Resp Auscultation: clear to auscultation bilaterally Cardio Rate: regular rate Rhythm: regular rhythm Heart sounds: S1 normal heart sound present and S2 normal heart sound present GI Palpation (GI): Soft to palpation and nontender Auscultation: normal bowel sounds Skin General skin exam: rashes and/or lesions noted Assessment & Plan Assessment & Plan (1) COPD (chronic obstructive pulmonary disease): Code(s): J44.9 - Chronic obstructive pulmonary disease, unspecified Category: Medical Qualifiers: COPD type: emphysema Emphysema type: centrilobular Qualified Code(s): J43.2 - Centrilobular emphysema (2) Pulmonary nodules: Code(s): R91.8 - Other nonspecific abnormal finding of lung field Category: Medical (3) Dystonia: Code(s): G24.9 - Dystonia, unspecified Category: Medical (4) Costochondritis: Code(s): M94.0 - Chondrocostal junction syndrome [Tietze] Category: Medical (5) Chest pain: Code(s): R07.9 - Chest pain, unspecified Category: Medical Qualifiers: Chest pain type: pleurodynia Qualified Code(s): R07.81 - Pleurodynia Plan CPET to address her on going dyspnea demonstrated a cardiovascular limitation. CT chest noted stable pulmonary nodules PSG was normal bone scan with non specific areas of activity. mouth piece provided wto use while exercising did not work Trial a small dose of flexeril as needed F/U 6-8 months Medications: New cyclobenzaprine 5 mg PO TID 10 days PRN 30 tabs 0RF muscle spasm cyclobenzaprine 5 mg PO TID PRN 30 tabs 0RF muscle spasm 10 days Coding Level of Care Code Est Pt Level 4 (77400) Diagnoses Centrilobular emphysema J43.2 COPD type: emphysema Emphysema type: centrilobular Pulmonary nodules R91.8 Dystonia G24.9 Costochondritis M94.0 Pleurodynia R07.81 Chest pain type: pleurodynia Time Spent (min) 20
[2023-10-14 14:52] VITALS: PULSE 66; O2SAT 99; BMI 22.7
== END 2023-10-14 15:30 | disposition home or self-care (01) ==
PROVIDERS: PCP Physician Assistant; Visit Provider Hospitalist
DX: J43.2 Centrilobular emphysema (principal); R91.8 Other nonspecific abnormal finding of lung field; G24.9 Dystonia, unspecified; M94.0 Chondrocostal junction syndrome [Tietze]; R07.81 Pleurodynia
CPT/HCPCS: 99214

== ENCOUNTER → 2023-10-14 14:49 | Outpatient (BNVA) | payer BC, SELFPAY | PROVIDERS: PCP Physician Assistant; Visit Provider Hospitalist ==

== ENCOUNTER 2024-05-31 10:48 | Outpatient (REF) | payer MEDICARE, SELFPAY ==
--- NOTE | ~2024-05-31 | CT_ITS ---
CLINICAL HISTORY: R91.8 - Other nonspecific abnormal finding of lung field CT chest without contrast Comparison: CT/SR - CT CHEST WO IV CON - 04/21/23 10:45 EST Findings: The heart size is normal. The visualized thyroid and mediastinum are unremarkable. Mild coronary artery calcification. No consolidation or effusion. No suspicious lesion or nodules. Small right posteromedial Bochdalek's hernia containing retroperitoneal fat. The visualized upper abdomen is unremarkable. The bones are intact. IMPRESSION: 1. No acute disease. 2. Small right posteromedial Bochdalek's hernia containing retroperitoneal fat. This document has been electronically signed by: Maicol Ramey MD on 06/01/2024 21:10:56
--- OUTSIDE RECORDS SUMMARY | 2024-05-31 12:39 | XMS_ITS | Encounter Summary ---
Author Organization [facility] Address [address] [place] [address] Care Team Providers Care Senior It Business Analyst Name Role Phone Pcp, No Primary Care Provider Lenore Elmore MD Primary Care Provider [phone] Encounter Details Date Type Department Care Team (Latest Contact Info) Description 05/30/2020 Lab Requisition [facility] [address] Through [address] [place] [address] [address] [place] [address] David Quintanilla MD [address] [place] [address] Encounter for laboratory testing for COVID-19 virus Social History Tobacco Use Types Packs/Day Years Used Date Smoking Tobacco: Never Assessed Sex and Gender Information Value Date Recorded Sex Assigned at Female 11/12/2022 1:43 PM EDT Gender Identity Not on file Sexual Orientation Heterosexual (straight) 11/12 1:43 PM EDT documented as of this encounter Plan of Treatment Upcoming Encounters Date Type Department Care Team (Late st Contact Info) Description 07/27/2024 4:00 PM EDT Procedure visit [facility] Neurology [address] [phone] Win Cristobal MD [address] [facility] [address] [place] [address] 11/02/2024 3:20 PM EDT Procedure visit [facility] Neurology [address] [phone] Win Cristobal MD [address] [place] [address] documented as of this encounter Procedures Procedure Name Priority Date/Time Associated Diagnosis Comments COVID-19 (SARS-COV-2) HANH Routine 05/30/2020 11:31 AM EDT Encounter for laboratory testing for COVID-19 virus [ICD-10-CM] documented in this encounter Results * COVID-19 (SARS-CoV-2), HANH (In-House) (05/30/2020 11:31 AM EDT) SARS CoV 2 Not Detected Not Detected 05/30/2020 2:24 PM EDT [facility] Comment: Negative results do not preclude SARS-CoV-2 (COVID-19)infection and should not be used as the sole basis for treatment or other patient management decisions. The SARS-CoV-2 (Covid-19) Nucleic Acid Amplification Assay is limited to laboratories certified under the Clinical Laboratory Improvement Amendments of 1988 (CLIA), 42 U.S.C. 263a, to perform high complexity tests. Nucleic acid amplication tests include RT-PCR and TMA. This assay has not been FDA cleared or approved, however, this assay has been authorized by the Food and Drug Administration (FDA) under an Emergency Use Authorization (EUA). ??Validation was completed and performance characteristics established by [facility] as per the FDA and CLIA requirement for this EUA. The Aptima SARS-CoV-2 assay Letter of Authorization, along with the authorized Fact Sheet for Healthcare Providers, the authorized Fact Sheet for Patients, and authorized labeling are available on the FDA website: https://www.fda.gov/medical-devices/fhnclvydv-txsuolfkyg-rtcpxaq-devices/emergen - g-gjwpdntrjrgbih-jzgnlio-devices. Performed at [facility], [place], [place] ??[place] License [id number] ??CLIA [id number] Source Nasopharyngeal 05/30/2020 2:24 PM EDT [facility] Comment:Performed at [facility], [facility], [place] license No. [id number] CLIA No. [id number] Microbiology Nasopharyngeal swab / Unknown 05/30/2020 11:31 AM EDT 05/30/2020 11:31 AM EDT David Quintanilla MD MICROBIOLOGY - GENER AL ORDERABLES [facility] [address] [place] [address] documented in this encounter Visit Diagnoses Diagnosis Encounter for laboratory testing for COVID-19 virus documented in this encounter Care Teams Senior It Business Analyst Relationship Specialty Start Date End Date Pcp, No PCP - General General Medicine 02/18/20 01/28/21 Lenore Hensley MD [address] [place] [id number] PCP - General Family Medicine 01/29/21 documented as of this encounter
--- OUTSIDE RECORDS SUMMARY | 2024-05-31 12:39 | XMS_ITS ---
Author Organization [facility] Address [address] [facility] [address] [place] [address] Care Team Providers Care Saxophone Assembler Name Role Phone LYNN ESTRADA PA-C Primary Care Provider Georgiana Lau Unavailable [phone] Allergies No Known Allergies Results Component Value Reference Range Notes Urinalysis Reviewed date:10/02/2023 03:33:51 PM Interpretation: Performing Lab: Notes/Report: PH 7.0 PROTEIN Neg GLUCOSE Neg BLOOD Neg REASON FOR VISIT Annual MAIL DISTRIBUTOR Physical, Annual MAIL DISTRIBUTOR Physical 60-85+ Medications Medication SIG (Take, Route, Frequency, Duration) Notes Start Date End Date Status Diflucan 150 MG 1 tablet Orally EVER Y 3 DAYS, PRN for 10 days 10/02/2023 Active Valtrex 500 MG 1 Orally DAILY for 9 0 days 2023 Active Yuvafem 10 MCG 1 tablet Vaginal THR ICE A WEEK for 90 days 10/02/2023 Active valACYclovir HCl 500 MG 1 tablet Orally Once a day for 90 days 10/02/2023 Active Vitamin D3 125 MCG (5000 UT) as directed Orally Seasonal Active Multi-Vitamin - 1 tablet Orally Once a day Active Social History Tobacco Use: Social History Observation Description Date Details (start date - stop date) Former Smoker NA - NA Sexual History Question Answer Notes Had sex in the past 12 months (vaginal, oral, or anal)? Yes with Men only Prevention strategies discussed: Other AUDIT-C (Standard) Question Answer Notes Did you have a drink contain ing alcohol in the past year? Yes How often did you have six o r more drinks on one occasion in the past year? Never (0 point) How many drinks did you have on a typical day when you were drinking in the past year? 1 or 2 drinks (0 point) How often did you have a dri nk containing alcohol in the past year? 2 to 4 times a month (2 points) Points 2 Interpretation Negative Tobacco Control (Standard) Question Answer Notes Tobacco use: Former smoker How long has it been since you last smoked? 5-10 years Vital Signs Temperature 98.1 degrees Fahrenheit 10/02/19 24 Blood pressure systolic 104 mm Hg 10/02/19 24 Blood pressure diastolic 76 mm Hg 024 Height 64 in 10/02/2023 Weight 131 lbs 10/02/2023 BMI 22.48 kg/m2 10/02/2023 Encounters Encounter Location Date Provider Diagnosis [address] [place] [address] 10/02/2023 Georgiana Fernandez Encounter for gynecological examination (general) (routine) without abnormal findings Z01.419 ; Encounter for screening mammogram for malignant neoplasm of breast Z12.31 ; Postmenopausal bleeding N95.0 ; Personal history of cervical dysplasia Z87.410 ; Herpesviral infection, unspecified B00.9 ; Acute candidiasis of vulva and vagina B37.31 ; Postmenopausal atrophic vaginitis N95.2 and Encounter for screening for osteoporosis Z13.820 Assessments Encounter Date Diagnosis (ICD Code) Assessment Notes Treatment Notes Treatment Clinical Notes Section Notes 10/02/2023 Encounter for gynecological examination (general) (routine) without abnormal findings (ICD-10 - Z01.419) NO PAP TEST, DUE IN 2025. 10/02/2023 Encounter for screening mammogram for malignant neoplasm of breast (ICD-10 - Z12.31) REGULAR MAMMOGRAMS AND SBE'S WERE RECOMMENDED. 10/02/2023 Postmenopausal bleeding (ICD-10 - N95.0) DISCUSSED HSONO FINDINGS AND ENCOURAGED HER TO PROCEED WITH HYSTEROSCOPY AND D&C. SHE AGREED. WILL REFER TO DR IRIZARRY OR DR BALDWIN. 10/02/2023 Personal history of cervical dysplasia (ICD-10 - Z87.410) DISCUSSED PREVIOUS CRYOTHERAPY AND SUBSEQUENTLY NEGATIVE PAP TESTS. REPEAT PAP TEST IN 2025. 10/02/2023 Herpesviral infection, unspecified (ICD-10 - B00.9) CONTINUE VALTREX. REMINDED PAT THAT STRESS IS THE MOST COMMON CAUSE OF ATTACKS. 10/02/2023 Acute candidiasis of vulva and vagina (ICD-10 - B37.31) DISCUSSED FINDINGS, DX AND TX OPTIONS. RECOMMENDED DIFLUCAN. RX AND DETAILED INSTRUCTIONS WERE GIVEN. AVOID LEGGINGS. LOOSE WHITE COTTON UNDERWEAR. 10/02/2023 Postmenopausal atrophic vaginitis (ICD-10 - N95.2) DISCUSSED FINDINGS AND INCREASED RISK OF YEAST WITH VAGINAL ATROPHY. RECOMMENDED INTRAVAGINAL ESTROGEN. SHE AGREED. RX AND INSTRUCTIONS FOR YUVAFEM WERE GIVEN. 10/02/2023 Encounter for screening for osteoporosis (ICD-10 - Z13.820) BONE DENSITY WAS ORDERED. Plan Of Treatment Medication Medication Name Sig Start Date Stop Date Notes Diflucan 150 MG 1 tablet Orally EVER Y 3 DAYS, PRN for 10 days 10/02/2023 Yuvafem 10 MCG 1 tablet Vaginal THR ICE A WEEK for 90 days 10/02/2023 valACYclovir HCl 500 MG 1 tablet Orally Once a day for 90 days 10/02/2023 Treatment Notes Assessment Notes Encounter for gynecological examination (general) (routine) without abnormal findings NO PAP TEST, DUE IN 2025. Encounter for screening mamm ogram for malignant neoplasm of breast REGULAR MAMMOGRAMS AND SBE'S WERE RECOMMENDED. Postmenopausal bleeding DISCUSSED HSONO FINDINGS AND ENCOURAGED HER TO PROCEED WITH HYSTEROSCOPY AND D&C. SHE AGREED. WILL REFER TO DR IRIZARRY OR DR BALDWIN. Personal history of cervical dysplasia DISCUSSED PREVIOUS CRYOTHERAPY AND SUBSEQUENTLY NEGATIVE PAP TESTS. REPEAT PAP TEST IN 2025. Herpesviral infection, unspecified CONTINUE VALTREX. REMINDED PAT THAT STRESS IS THE MOST COMMON CAUSE OF ATTACKS. Acute candidiasis of vulva and vagina DISCUSSED FINDINGS, DX AND TX OPTIONS. RECOMMENDED DIFLUCAN. RX AND DETAILED INSTRUCTIONS WERE GIVEN. AVOID LEGGINGS. LOOSE WHITE COTTON UNDERWEAR. Postmenopausal atrophic vaginitis DISCUSSED FINDINGS AND INCREASED RISK OF YEAST WITH VAGINAL ATROPHY. RECOMMENDED INTRAVAGINAL ESTROGEN. SHE AGREED. RX AND INSTRUCTIONS FOR YUVAFEM WERE GIVEN. Encounter for screening for osteoporosis BONE DENSITY WAS ORDERED. Pending Test Test Name Order Date MAMMOGRAM, SCREENING 10/02/2023 BONE DENSITY 10/02/2023 MM Digital Mammo Screening 10/02/2023 Next Appt Details Follow Up: 1 Year, Reason: Provider Name:Georgiana dockery, 10/07/2024 01:40:00 PM, [address], [address], [place], [address], Progress Notes * CARMEN DESAIADOB:[birth year] (63 yo F)Acc No.[id number]:10/02/2023 PROGRESS NOTES Patient:SUKI TORRES Appointment Provider:?Georgiana dockery M.D. :1960???Age:63 Y???Sex:Female D ate:10/02/2023 Address:[address] [place], [place] [id number] Pcp:LYNN ESTRADA PA-C Subjective: * Chief Complaints: * ??? Annual MAIL DISTRIBUTOR PhysicalAnnua l MAIL DISTRIBUTOR Physical 60-85+ * HPI: ???New/Follow-up Patient Consult:? PAT ENTERED MENOPAUSE AT AGE 50.? SHE WAS PLACED ON HRT BY DOCTORS IN [place] ON LINE IN EARLY 2022 AND SHE DISCONTINUED THIS IN NOV 2022.? SHE HAD PMB IN MAR 2023.? HSONO COULD NOT BE DONE DUE TO TIGHTLY STENOTIC CERVICAL OS.? THE ENDOMETRIUM WAS 5.2 MM THICK? SHE WAS ADVISED HYSTEROSCOPY AND D&C BUT SHE WAS NOT CLEAR ABOUT WHETHER OR NOT SHE WANTED THIS DONE.? SHE NOW SAYS SHE WANTS TO PROCEED.? SHE HAS NOT HAD ANY RECURRENCE OF PMB. 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 SHE DENIES DYSPAREUNIA AND STD TESTS HAVE BEEN NEGATIVE. SHE UNDERWENT CRYOTHERAPY IN 1988 FOR CERVICAL DYSPLASIA.? HER SUBSEQUENT PAP TESTS HAVE BEEN NEGATIVE.? HER LAST ONE IN 2022 WAS NEGATIVE AND HPV NEGATIVE. SHE HAD VULVAR LESIONS RECENTLY AND CULTURE SHOWED HSV 2.? SHE WAS TREATED APPROPRIATELY AND ADVISED PROPHYLACTIC TX USING VALTREX 500 MG DAILY.? SHE SAYS THAT HER ATTACKS BECAME MORE FREQUENT SINCE STARTING THE MEDICATION.? BUT SHE ALSO ADMITS SHE IS UNDER MORE STRESS DUE TO HER MOTHER'S ILLNESS.? SHE WILL CONTINUE VALTREX. SHE C/O VAGINAL DISCHARGE WITH VAGINAL IRRITATION OF A FEW WEEKS DURATION.? SHE HAS A HX OF YEAST VAGINITIS. HER LAST MAMMOGRAM DONE IN 2022 SHOWED BREASTS ARE NOT DENSE AND WAS NORMAL. HER LAST BMD IN 2016 WAS NORMAL.? HER MOTHER IS OSTEOPOROTIC. SHE HAD A COLONOSCOPY DONE IN 2016. PFIZER X 2. ???Annual:? Patient presents for annual exam, ages 60-85, postmenopausal. ?General Health Maintenance:?Current breast complaints:?no breast pain, mass, discharge, or skin changes ?Urinary problems:?patient reports no urinary health problems or bowel health problems ?Calcium intake:?takes adequate calcium via diet and supplementation ?Significant MAIL DISTRIBUTOR problems:?no significant electric range servicer symptoms or problems * ROS:?general:?no?chest pain.?no?palpitations.?no?headache.?no?cough.?no?shortness of breath.?no?fever.?no?unexplained weight loss.?no?nausea/vomiting.?no?change in bowel movements.?no blood in stool.?no?genitourinary complaints.?no?skin complaints.? * Medical History:? 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 * OB History:?Total pregnancies?3.?Total living children?2.?(s)?2.?(s)?1.? * Surgical History:?Shoulder R eplacement 01/2009C-Section x 2 1988 & Carpal Tunnel Surgeries 2013Colonoscopy * Hospitalization/Major Diagno stic Procedure:?See Surgical Hx * Family History:?Mother: shaun schaefer, Osteoporosis, Stomach Issues.?Father: , PSP.? Twins Brother: alive, well. * Social History:?Tobacco Use:?Tobacco Control (Standard)?Tobacco use:?Former smoker ?How long has it been since you last smoked??5-10 years ???Sexual History:?Sexual History?Had sex in the past 12 months (vaginal, oral, or anal)??Yes ?with?Men only ?Prevention strategies discussed:?Other ?Details of Sexual History?Are you sexually active??Yes ???Drugs/Alcohol:?Drugs?Have you used drugs other than those for medical reasons in the past 12 months??No ???Miscellaneous:?Children: yes, 2. ?Exercise: yes, strength training 3x a week. ?Home smoke detector use: yes. ?Marital status: . ?Natural support system: yes. 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 ?Sexually active: yes. ???Drug/Alcohol:?AUDIT-C (Standard)?Did you have a drink containing alcohol in the past year??Yes ?How often did you have six or more drinks on one occasion in the past year??Never (0 point) ?How many drinks did you have on a typical day when you were drinking in the past year??1 or 2 drinks (0 point) ?How often did you have a drink containing alcohol in the past year??2 to 4 times a month (2 points) ?Points?2 ?Interpretation?Negative * Medications:?TakingMulti-Vit acharya - Tablet 1 tablet Orally Once a day Vitamin D3 125 MCG (5000 UT) Capsule as directed Orally , Notes to Pharmacist: SeasonalValtrex 500 MG Tablet 1 Orally DAILY Taking Multi-Vitamin - Tablet 1 tablet Orally Once a day Taking Vitamin D3 125 MCG (5000 UT) Capsule as directed Orally , Notes to Pharmacist: SeasonalTaking Valtrex 500 MG Tablet 1 Orally DAILY DiscontinuedProbiotic 250 MG Capsule 1 capsule Orally Twice a day Valtrex 500 MG Tablet 1 tablet Orally TWICE DAILY miSOPROStol 200 MCG Tablet 2 tablets Orally The night before procedure Medication List reviewed and reconciled with the patientDiscontinued Probiotic 250 MG Capsule 1 capsule Orally Twice a day Discontinued Valtrex 500 MG Tablet 1 tablet Orally TWICE DAILY Discontinued miSOPROStol 200 MCG Tablet 2 tablets Orally The night before procedure Medication List reviewed and reconciled with the patient * Allergies:?N.K.D.A.no[Allerg ies Verified] Objective: * Vitals:?Ht: 64 in, Wt:131lbs , BMI:22.48Index, BP:104/76mm Hg, Temp:98.1F. * Examination: ???General Exam: ?CONSTITUTIONAL:?General Appearance:?alert, in no acute distress, normal, well nourished ?NECK/THYROID:?Inspection/Palpation:?normal ?Thyroid:?normal size and shape ?RESPIRATORY:?Auscultation: clear to auscultation bilaterally, Respiratory Effort: normal.?CARDIOVASCULAR:?Auscultation: regular rate and rhythm.?BREAST, Right:?Inspection/Palpation:?no discharge, no masses present, no nipple retraction, no skin changes, no skin dimpling, no tenderness, no lymphadenopathy, no axillary mass, no axillary tenderness ?BREAST, Left:?Inspection/Palpation:?no discharge, no masses present, no nipple retraction, no skin changes, no skin dimpling, no tenderness, no lymphadenopathy, no axillary mass, no axillary tenderness ?GASTROINTESTINAL:?Abdomen:?no masses, nontender, nondistended ?Liver and Spleen:?normal ?Hernias:?no hernias present, no inguinal adenopathy ?MUSCULOSKELETAL:?Inspection/Palpation:?no clubbing, cyanosis, or edema ?SKIN:?Skin:?normal ?NEURO/PSYCH:?Orientation:?time , place, person ?Mood/Affect:?normal?Genitourinary: ?EXTERNAL GENITALIA:?External Genitalia:?normal, no lesions ?VAGINA:?Vagina:?atrophic vaginal tissue ERYTRHEMATOUS VAGINAL MUCOSA WITH WHITE DISCHARGE, +YEAST ?BLADDER:?Bladder:?no mass, nontender ?URETHRA:?Urethra:?no erythema or lesions present ?CERVIX:?Cervix:?no lesions, nontender ?UTERUS:?Uterus:?nontender, normal contour, normal mobility, normal size ?ADNEXA:?Adnexa:?no masses, no tenderness ?ANUS AND PERINEUM:?Anus/Perineum:?visually normal??? Assessment: * Assessment: 1.?Encounter for gynecologic al examination (general) (routine) without abnormal findings - Z01.419???2.?Encounter for screening mammogram for malignant neoplasm of breast - Z12.31???3.?Postmenopausal bleeding - N95.0???4.?Personal history of cervical dysplasia - Z87.410???5.?Herpesviral infection, unspecified - B00.9???6.?Acute candidiasis of vulva and vagina - B37.31???7.?Postmenopausal atrophic vaginitis - N95.2???8.?Encounter for screening for osteoporosis - Z13.820??? Plan: * Treatment: ? Value Reference Range ?PH 7.0 * ?PROTEIN Neg * ?GLUCOSE Neg * ?BLOOD Neg * D. TEVIN 10/02/2023 01:10:32 PM EDT > Notes: NO PAP TEST, DUE IN 2025.??2.?Encounter for screening mammogram for malignant neoplasm of breast?Imaging: MM Digital Mammo Screening Notes: REGULAR MAMMOGRAMS AND SBE'S WERE RECOMMENDED.??3.?Postmenopausal bleeding? Notes: DISCUSSED HSONO FINDINGS AND ENCOURAGED HER TO PROCEED WITH HYSTEROSCOPY AND D&C. SHE AGREED. WILL REFER TO DR IRIZARRY OR DR BALDWIN.??4.?Personal history of cervical dysplasia? Notes: DISCUSSED PREVIOUS CRYOTHERAPY AND SUBSEQUENTLY NEGATIVE PAP TESTS. REPEAT PAP TEST IN 2025.??5.?Herpesviral infection, unspecified? Start valACYclovir HCl Tablet, 500 MG, 1 tablet, Orally, Once a day, 90 days, 90 Tablet, Refills 4. ? Notes: CONTINUE VALTREX. REMINDED PAT THAT STRESS IS THE MOST COMMON CAUSE OF ATTACKS.??6.?Acute candidiasis of vulva and vagina? Start Diflucan Tablet, 150 MG, 1 tablet, Orally, EVERY 3 DAYS, PRN, 10 days, 3 Tablet, Refills 3. ? Notes: DISCUSSED FINDINGS, DX AND TX OPTIONS. RECOMMENDED DIFLUCAN. RX AND DETAILED INSTRUCTIONS WERE GIVEN. AVOID LEGGINGS. LOOSE WHITE COTTON UNDERWEAR.??7.?Postmenopausal atrophic vaginitis? Start Yuvafem Tablet, 10 MCG, 1 tablet, Vaginal, THRICE A WEEK, 90 days, 36 Tablet, Refills 4.?? Notes: DISCUSSED FINDINGS AND INCREASED RISK OF YEAST WITH VAGINAL ATROPHY. RECOMMENDED INTRAVAGINAL ESTROGEN. SHE AGREED. RX AND INSTRUCTIONS FOR YUVAFEM WERE GIVEN.??8.?Encounter for screening for osteoporosis?Imaging: BONE DENSITY* POST MENOPAUSAL Z78.0 Notes: BONE DENSITY WAS ORDERED.?? * Imaging:? * ?Imaging: MAMMOGRAM, SCR EENING * Procedure Codes:? * Preventive Medicine:? ??YOUR PREVENTIVE WELLNESS PLAN:?Osteoporosis prevention?Calcium, D, strength training.?Breast Cancer Screening (Mammogram):?annually.?Cervical Cancer Screening (Pap Smear):?q 3 years with HPV screen.?Colorectal Cancer Screening:?q 10 years.? * Follow Up:?1 Year * Images: Billing Information: * Visit Code:? [id number] Preventive Care Est Pt. Age 65 and over. * Procedure Codes:? * Sign off status: Completed true * Appointment Provider:?Georgiana Fernandez M.D. Date:?10/02/2023 Generated for Leola khalil/José/Arashitting on:?05/31/2024 12:39 PM EDT History and Physical Notes * HPI (History of Present Illness) Category Sub-Category Detail Notes Category Not es New/Follow-up Patient Consult PAT ENTERED MENOPAUSE AT AGE 50. SHE WAS PLACED ON HRT BY DOCTORS IN [place] ON LINE IN EARLY 2022 AND SHE DISCONTINUED THIS IN NOV 2022. SHE HAD PMB IN MAR 2023. HSONO COULD NOT BE DONE DUE TO TIGHTLY STENOTIC CERVICAL OS. THE ENDOMETRIUM WAS 5.2 MM THICK SHE WAS ADVISED HYSTEROSCOPY AND D&C BUT SHE WAS NOT CLEAR ABOUT WHETHER OR NOT SHE WANTED THIS DONE. SHE NOW SAYS SHE WANTS TO PROCEED. SHE HAS NOT HAD ANY RECURRENCE OF PMB. 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 SHE DENIES DYSPAREUNIA AND STD TESTS HAVE BEEN NEGATIVE. SHE UNDERWENT CRYOTHERAPY IN 1988 FOR CERVICAL DYSPLASIA. HER SUBSEQUENT PAP TESTS HAVE BEEN NEGATIVE. HER LAST ONE IN 2022 WAS NEGATIVE AND HPV NEGATIVE. SHE HAD VULVAR LESIONS RECENTLY AND CULTURE SHOWED HSV 2. SHE WAS TREATED APPROPRIATELY AND ADVISED PROPHYLACTIC TX USING VALTREX 500 MG DAILY. SHE SAYS THAT HER ATTACKS BECAME MORE FREQUENT SINCE STARTING THE MEDICATION. BUT SHE ALSO ADMITS SHE IS UNDER MORE STRESS DUE TO HER MOTHER'S ILLNESS. SHE WILL CONTINUE VALTREX. SHE C/O VAGINAL DISCHARGE WITH VAGINAL IRRITATION OF A FEW WEEKS DURATION. SHE HAS A HX OF YEAST VAGINITIS. HER LAST MAMMOGRAM DONE IN 2022 SHOWED BREASTS ARE NOT DENSE AND WAS NORMAL. HER LAST BMD IN 2015 WAS NORMAL. HER MOTHER IS OSTEOPOROTIC. SHE HAD A COLONOSCOPY DONE IN 2017. WP Engine X 2. Annual General Health Maintenance: Current breast complaints:: no breast pain, mass, discharge, or skin changes Urinary problems:: patient r eports no urinary health problems or bowel health problems Calcium intake:: takes adequ ate calcium via diet and supplementation Significant MAIL DISTRIBUTOR problems:: n o significant electric range servicer symptoms or problems Examination Category Sub-Category Detail Notes Category Not es General Exam CONSTITUTIONAL: General Appearan ce:: alert, in no acute distress, normal, well nourished NECK/THYROID: Thyroid:: normal size and shape Inspection/Palpation:: normal RESPIRATORY: Auscultation: clear to auscultation bilaterally, Respiratory Effort: normal CARDIOVASCULAR: Auscultation: regula r rate and rhythm GASTROINTESTINAL: Hernias:: no hernias present, no inguinal adenopathy Liver and Spleen:: normal Abdomen:: no masses, nontender, nondiste nded MUSCULOSKELETAL: Inspection/Palpation:: no clubb ing, cyanosis, or edema SKIN: Skin:: normal NEURO/PSYCH: Mood/Affect:: normal Orientation:: time , place, person BREAST, Right: Inspection/Palpation :: no discharge, no masses present, no nipple retraction, no skin changes, no skin dimpling, no tenderness, no lymphadenopathy, no axillary mass, no axillary tenderness BREAST, Left: Inspection/Palpation :: no discharge, no masses present, no nipple retraction, no skin changes, no skin dimpling, no tenderness, no lymphadenopathy, no axillary mass, no axillary tenderness Genitourinary EXTERNAL GENITALIA: External Genitalia:: nor mal, no lesions VAGINA: Vagina:: atrophic vaginal tissue ERYTRHEMATOUS VAGINAL MUCOSA WITH WHITE DISCHARGE, +YEAST BLADDER: Bladder:: no mass, nontender URETHRA: Urethra:: no erythem a or lesions present CERVIX: Cervix:: no lesions, nontender UTERUS: Uterus:: nontender, normal contour, normal mobility, normal size ADNEXA: Adnexa:: no masses, no tenderness ANUS AND PERINEUM: Anus/Perineum:: visually norm al
--- OUTSIDE RECORDS SUMMARY | 2024-05-31 12:39 | XMS_ITS | Encounter Summary ---
Author Organization [facility] Address [address] [place] [address] Care Team Providers Care Managing Broker Name Role Phone Lenore Hensley MD Primary Care Provider [phone] Encounter Details Date Type Department Care Team (Late Contact Info) Description 02/28/2022 Scanned Document [facility] Neurology [address] [address] Win Cristobal MD 35 [facility] [address] [place] [address] Social History Tobacco Use Types Packs/Day Years Used Date Smoking Tobacco: Former Cigarettes Q uit: 2016 Smokeless Tobacco: Former Alcohol Use Standard Drinks/Week Comments Yes 0 (1 standard drink = 0.6 oz pur e alcohol) socially 1-2 drinks Sex and Gender Information Value Date Recorded Sex Assigned at Female 11/12/2022 1:43 PM EDT Gender Identity Not on file Sexual Orientation Heterosexual (straight) 11/12 1:43 PM EDT documented as of this encounter Plan of Treatment Upcoming Encounters Date Type Department Care Team (Late st Contact Info) Description 07/27/2024 4:00 PM EDT Procedure visit [facility] Neurology [address] [address] Win Cristobal MD 35 [facility] [address] [place] [address] 11/02/2024 3:20 PM EDT Procedure visit [facility] Neurology [address] [address] Win Cristobal MD 35 [facility] [address] [place] [address] documented as of this encounter Visit Diagnoses Not on filedocumented in this encounter Care Teams Managing Broker Relationship Specialty Start Date End Date Lenore Hensley MD [address] [place] [address] [address] [place] [address] PCP - General Family Medicine 01/29/21 documented as of this encounter
--- OUTSIDE RECORDS SUMMARY | 2024-05-31 12:39 | XMS_ITS | Encounter Summary ---
Author Organization [facility] Address [address] [place] [address] Care Team Providers Care Sql Dba Name Role Phone Lenore Hensley MD Primary Care Provider [phone] Encounter Details Date Type Department Care Team (Late Contact Info) Description 02/28/2022 Scanned Document [facility] Neurology [address] [address] Win Cristobal MD 35 [facility] [address] [place] [address] Social History Tobacco Use Types Packs/Day [...] Description 07/27/2024 4:00 PM EDT Procedure visit [facility] Neurology [address] [address] Win Cristobal MD 35 [facility] [address] [place] [address] 11/02/2024 3:20 PM EDT Procedure visit [facility] Neurology [address] [address] Win Cristobal MD 35 [facility] [address] [place] [address] documented as of this encounter Visit Diagnoses Not on filedocumented in this encounter Care Teams Sql Dba Relationship Specialty Start Date End Date Lenore Hensley MD [address] [place] [address] 110 [place] [address] PCP - General Family Medicine 01/29/21 documented as of this encounter
--- OUTSIDE RECORDS SUMMARY | 2024-05-31 12:39 | XMS_ITS | Encounter Summary ---
Author Organization [facility] Address [address] [place] [address] Care Team Providers Care Icebox Man Name Role Phone Lenore Hensley MD Primary Care Provider [phone] Encounter Details Date Type Department Care Team (Late Contact Info) Description 04/26/2021 Scanned Document [facility] Neurology [address] [phone] Win Cristobal MD 35 [facility] [address] [place] [address] Social History Tobacco Use Types Packs/Day [...] Orientation Heterosexual (straight) 11/12 1:43 PM EDT COVID-19 Exposure Response Date Recorded In the last month, have you been in contact with someone who was confirmed or suspected to have Coronavirus / COVID-19? No / Unsure 04/26/2021 4:01 PM EST documented as of this encounter Plan of Treatment Upcoming Encounters Date Type Department Care Team ([facility] Contact Info) Description 07/27/2024 4:00 PM EDT Procedure visit [facility] Neurology [place] [address] [facility] [address] [place] [address] Win Cristobal MD [address] [facility] 6 [place] [address] 11/02/2024 3:20 PM EDT Procedure visit [facility] Neurology [address] [place] [phone] Win Cristobal MD 35 [facility] [address] [place] [address] documented as of this encounter Visit Diagnoses Not on filedocumented in this encounter Care Teams Icebox Man Relationship Specialty Start Date End Date Lenore Hensley MD [address] [place] [address] PCP - General Family Medicine 01/29/21 documented as of this encounter
--- OUTSIDE RECORDS SUMMARY | 2024-05-31 12:39 | XMS_ITS | Clinical Summary ---
Author Organization [facility] Address [address] [place] [address] Care Team Providers Care Plate Painter Apprentice Name Role Phone Chirag Salmeron MD Primary Care Provider Allergies No known active allergies Medications No known medications Active Problems No known active problems Social History Tobacco Use Types Packs/Day Years Used Date Smoking Tobacco: Former Cigarettes Passive Smoke Exposure: Never Smokeless Tobacco: Never Tobacco Cessation:Counseling Given: Not Answered Alcohol Use Standard Drinks/Week Comments Yes 0 (1 standard drink = 0.6 oz pur e alcohol) social Sex and Gender Information Value Date Recorded Sex Assigned at Female 07/30/2023 4:33 PM EDT Gender Identity Not on file Sexual Orientation Not on file Job Start Date Occupation Industry Not on file Not on file Not on file Last Filed Vital Signs Vital Sign Reading Time Taken Comments Blood Pressure 96/79 07/30/2023 5:04 PM EDT Pulse 60 07/30/2023 5:04 PM EDT Temperature 36.6 ??C (97.9 ??F) 07/30/2023 5:04 PM ED T Respiratory Rate 18 07/30/2023 5:04 PM EDT Oxygen Saturation 99% 07/30/2023 5:04 PM EDT Inhaled Oxygen Concentration - - Weight 58.1 kg (128 lb) 07/30/2023 5:04 PM EDT Height 160 cm (5' 3 ) 07/30/2023 5:04 PM EDT Body Mass Index 22.67 07/30/2023 5:04 PM EDT Plan of Treatment Health Maintenance Due Date Last Done Comments Hepatitis C Screening 1959 Depression Screening 1971 Preventative Health Evaluation 04/17/1977 Cervical Cancer Screening (Pap Smear) 04/17/1980 Colon Cancer Screening (Colonoscopy) 04/17/2004 Breast Cancer Screening (Mammogram) 04/17/2009 Shingrix-Zoster Vaccine (1 of 2) 04/17/2009 COVID-19 Vaccine (3 - 2023- season) 2023 04/16/2020, 03/26/2020 Influenza Vaccine (#1) 2023 8, 12/12/2014, 03/17/2013, Additional history exists Fall Risk Assessment 04/17/2024 Osteoporosis Screening (DEXA Scan) 04/17/2024 Pneumococcal Vaccine (1 of 1 - PCV) 04/17/2024 DTap / Tdap / Td (3 - Td or Tdap) 08/22/2030 08/22/2020, 02/16/2008 RSV Adult > 60+ Yrs or (1 - 1-dose 75+ series) 04/17/2034 Hepatitis B Vaccines Completed 03/28/2017, 11/08/2016, 09/27/2016 Pneumococcal Vaccine Aged Out No long er eligible based on patient's age to complete this topic RSV Ped < 20 months Aged Out No longe r eligible based on patient's age to complete this topic Care Teams Plate Painter Apprentice Relationship Specialty Start Date End Date Chirag Salmeron MD [address] [address] PCP - General Automotive Airconditioning Mechanic 07/30/23
--- OUTSIDE RECORDS SUMMARY | 2024-05-31 12:39 | XMS_ITS | Encounter Summary ---
Author Organization [facility] Address [address] [place] [address] Care Team Providers Care Hat Former Name Role Phone Lenore Hensley MD Primary Care Provider Encounter Details Date Type Department Care Team (Late Contact Info) Description 08/19/2022 Scanned Document [facility] NEUROLOGY SCAN Win Cristobal MD 35 [facility] [address] [place], [place] [phone] Social History Tobacco Use Types Packs/Day Years [...] Exposure Response Date Recorded In the last 10 days, have yo u been in contact with someone who was confirmed or suspected to have Coronavirus/COVID-19? No / Unsure 08/13/2022 7:47 AM EDT documented as of this encounter Plan of Treatment Upcoming Encounters Date Type Department Care Team (Late Contact Info) Description 07/27/2024 4:00 PM EDT Procedure visit [facility] Neurology [address] [place] [phone] Win Cristobal MD 35 [facility] [address] [place], [place] [address] 11/02/2024 3:20 PM EDT Procedure visit [facility] [place]rology [place] [address] [facility] [address] [place] [phone] Win Cristobal MD 35 [facility] [address] [place] [address] documented as of this encounter Visit Diagnoses Not on filedocumented in this encounter Care Teams Hat Former Relationship Specialty Start Date End Date Lenore Hensley MD [address] [facility] 110 [place] [address] PCP - General Family Medicine 01/29/21 documented as of this encounter
--- OUTSIDE RECORDS SUMMARY | 2024-05-31 12:39 | XMS_ITS | Encounter Summary ---
Author Organization [facility] Address [address] [place] [address] Care Team Providers Care Senior Systems Administrator Name Role Phone Lenore Hensley MD Primary Care Provider [phone] Encounter Details Date Type Department Care Team (Late Contact Info) Description 05/20/2022 Scanned Document [facility] Neurology [address] [phone] Win Cristobal MD [address] [phone] Social History Tobacco Use Types Packs/Day Years [...] Description 07/27/2024 4:00 PM EDT Procedure visit [facility] Neurology [address] [phone] Win Cristobal MD [address] [address] 11/02/2024 3:20 PM EDT Procedure visit [facility] Neurology [address] [address] Win Cristobal MD 35 [facility] [address] [place] [address] documented as of this encounter Visit Diagnoses Not on filedocumented in this encounter Care Teams Senior Systems Administrator Relationship Specialty Start Date End Date Lenore Hensley MD [address] [place] [address] [address] [place] [address] PCP - General Family Medicine 01/29/21 documented as of this encounter
--- OUTSIDE RECORDS SUMMARY | 2024-05-31 12:39 | XMS_ITS | Encounter Summary ---
Author Organization [facility] Address [address] [place] [address] Care Team Providers Care Chainsaw Mechanic Name Role Phone Lenore Hensley MD Primary Care Provider [phone] Encounter Details Date Type Department Care Team (Late st Contact Info) Description 12/11/2022 Scanned Document [facility] NEUROLOGY SCAN Thaddeus Vázquez PA-C [address] [place] [address] Social History Tobacco Use Types Packs/Day Years [...] [facility] Neurology [address] [phone] Win Cristobal MD 35 [facility] [address] [place] [address] 11/02/2024 3:20 PM EDT Procedure visit [facility] Neurology [address] [phone] Win Cristobal MD 35 [facility] [address] [place] [address] documented as of this encounter Visit Diagnoses Not on filedocumented in this encounter Care Teams Chainsaw Mechanic Relationship Specialty Start Date End Date Lenore Hensley MD 701 [facility] 110 [place] [address] PCP - General Family Medicine 01/29/21 documented as of this encounter
--- OUTSIDE RECORDS SUMMARY | 2024-05-31 12:39 | XMS_ITS | Encounter Summary ---
Author Organization [facility] Address [address] [place], [place] [id number] Care Team Providers Care Sealant Mixer Name Role Phone Pcp, No Primary Care Provider Lenore Elmore MD Primary Care Provider [phone] Encounter Details Date Type Department Care Team (Latest Contact Info) Description 02/28/2020 Lab Requisition [facility] [address] [place] [address] [address] [place] [address] Frnakie Vasquez PA-C [address] [place] [address] Encounter for laboratory testing for COVID-19 virus [...] Description 07/27/2024 4:00 PM EDT Procedure visit [facility] Neurology [address] [place] [phone] Win Cristobal MD 35 [place] [address] [place], [place] [phone] 11/02/2024 3:20 PM EDT Procedure visit [facility] Neurology [address] [phone] Win Cristobal MD [address] [place] [address] documented as of this encounter Procedures Procedure Name Priority Date/Time Associated Diagnosis Comments COVID-19 (SARS-COV-2) - [facility] LAB Routine 02/28/2020 1:48 PM EST Encounter for laboratory testing for COVID-19 virus [ICD-10-CM] documented in this encounter Results * COVID-19 (SARS-COV-2) (SEMA4) (02/28/2020 1:48 PM EST) COVID-19 RT-PCR NOT-DETEC HERMINIA Not-Detec herminia 03/01/2020 8:42 AM EST [facility] Comment:Interpretation: The viral RNA was not detected, making the COVID-19 diagnosis less likely. Clinical correlation is highly recommended.Final report signed by Krystal Marks, Ph.D., Laboratory DirectorTests performed at [facility] Nasopharyngeal swab / Unknown 02/28/2020 1:48 PM EST 02/28/2020 1:48 PM EST Narrative [facility] - 03/01/2020 8:42 AM EST Performed by [facility] [address] [place] [address], CLIA# [id number] and [place] License# [id number] Frankie Vasquez PA-C MICROBIOLOGY - NERAL ORDERABLES [facility] documented in this encounter Visit Diagnoses Diagnosis Encounter for laboratory testing for COVID-19 virus documented in this encounter Care Teams Sealant Mixer Relationship Specialty Start Date End Date Pcp, No PCP - General General Medicine 02/18/20 01/28/21 Lenore Hensley MD 701 [facility] [place] [address] [place] [address] PCP - General Family Medicine 01/29/21 documented as of this encounter
--- OUTSIDE RECORDS SUMMARY | 2024-05-31 12:39 | XMS_ITS | Encounter Summary ---
Author Organization [facility] Address [address] [place] [address] Care Team Providers Care Software Engineer [place] Name Role Phone Lenore Hensley MD Primary Care Provider [phone] Encounter Details Date Type Department Care Team (Late st Contact Info) Description 05/21/2022 Scanned Document [facility] Neurology [address] [place] [phone] Win Cristobal MD [address] [phone] Social History Tobacco Use Types Packs/Day Years [...] Description 07/27/2024 4:00 PM EDT Procedure visit [facility] Neurology [address] 102 [place] [phone] Win Cristobal MD [address] [phone] 11/02/2024 3:20 PM EDT Procedure visit [facility] Neurology [address] [place] [address] Win Cristobal MD 35 [facility] [address] [place] [address] documented as of this encounter Visit Diagnoses Not on filedocumented in this encounter Care Teams Software Engineer [place] Relationship Specialty Start Date End Date Lenore Hensley MD [address] [place] [address] 110 [place] [address] PCP - General Family Medicine 01/29/21 documented as of this encounter
--- OUTSIDE RECORDS SUMMARY | 2024-05-31 12:40 | XMS_ITS | Encounter Summary ---
Author Organization [facility] Address [address] [place] [address] Care Team Providers Care Photography Teacher Name Role Phone Lenore Hensley MD Primary Care Provider [phone] Encounter Details Date Type Department Care Team (Late Contact Info) Description 04/16/2023 Scanned Document [facility] NEUROLOGY SCAN Win Cristobal MD 35 [facility] [address] [place], [place] [phone] Social History Tobacco Use Types Packs/Day Years [...] Description 07/27/2024 4:00 PM EDT Procedure visit [facility] Neurology [address] [phone] Win Cristobal MD [address] [facility] [facility] [address] [place], [place] [phone] 11/02/2024 3:20 PM EDT Procedure visit [facility] Neurology [address] [phone] Win Cristobal MD 35 [facility] [address] [place] [address] documented as of this encounter Visit Diagnoses Not on filedocumented in this encounter Care Teams Photography Teacher Relationship Specialty Start Date End Date Lenore Hensley MD 701 [facility] 110 [place] [address] PCP - General Family Medicine 01/29/21 documented as of this encounter
--- OUTSIDE RECORDS SUMMARY | 2024-05-31 12:40 | XMS_ITS ---
Author Organization [facility] Address [address] [facility] [address] [place] [address] Care Team Providers Care Apartment Community Manager Name Role Phone LYNN ESTRADA PA-C Primary Care Provider Georgiana Lau [phone] REASON FOR VISIT BW REQUEST 2023 Encounters Encounter Location Date Provider Diagnosis [facility] [address] [place] [address] 10/02/2023 Georgiana Fernandez Plan Of Treatment Next Appt Details Provider Name:Georgiana dockery, 10/07/2024 01:40:00 PM, [address] [place] [address], [facility] [address], [place], [address], Progress Notes * CARMEN DESAIADOB:[birth year] (64 yo F)Acc No.[id number]:10/02/2023 Patient:?SUKI DESAI :1960???Age:63 Y???Sex:Female Address:[address] [place] [address], [address] * true * Date:? Generated for Leola khalil/José/eTransmitting on:?05/31/2024 12:40 PM EDT
--- OUTSIDE RECORDS SUMMARY | 2024-05-31 12:40 | XMS_ITS | Encounter Summary ---
Author Organization [facility] Address [address] [place] [address] Care Team Providers Care Complex Care Nurse Name Role Phone Lenore Hensley MD Primary Care Provider [phone] Encounter Details Date Type Department Care Team (Late st Contact Info) Description 04/15/2024 Telephone [facility] Neurology [address] [place] [address] Win Cristobal MD 35 [facility] [address] [place], [place] [phone] Social History Tobacco Use Types Packs/Day Years Used Date Smoking Tobacco: Former Cigarettes Q uit: 2016 Smokeless Tobacco: Former Alcohol Use Standard Drinks/Week Comments Yes 0 (1 standard drink = 0.6 oz pur e alcohol) socially 1-2 drinks PHQ-2 Answer Date Recorded PHQ-2 Total Score 0 10/29/2023 Sex and Gender Information Value Date Recorded Sex Assigned at Female 11/12/2022 1:43 PM EDT Gender Identity Not on file Sexual Orientation Heterosexual (straight) 11/12 1:43 PM EDT documented as of this encounter Miscellaneous Notes * Telephone Encounter - Mary Romero - 04/15/2024 12:02 PM EST I discussed with Pauilna that her Xeomin shipment was already scheduled and that she will be covered to come in to her next visit. She also asked advice on which type of Medicare plan she should get and I told her that I don't deal with the out of pocket costs when it comes to the procedures and insurances but I do know that Medicare A[employer] doesn't require an authorization for xeomin as of now andmost of our patients seem very happy with it. I did also tell her though that we have a lot of managed medicare patients as well who are also very happy with it so it is best to discuss with medicareand see what is best for her overall. * Telephone Encounter - Antonia Valdez MA - 04/15/2024 11:50 AM EST The patient called in stating she will be switching to Medicare next month and wants to know which plan would best cover her injections. Additionally, she mentioned receiving a letter from her current insurance stating that Xeomin injections will not be covered. Her call-back number is [phone] . documented in this encounter Plan of Treatment Upcoming Encounters Date Type Department Care Team (Late st Contact Info) Description 07/27/2024 4:00 PM EDT Procedure visit [facility] Neurology [address] [phone] Win Cristobal MD [address] [address] 11/02/2024 3:20 PM EDT Procedure visit [facility] Neurology [address] [address] Win Cristobal MD [address] [address] documented as of this encounter Visit Diagnoses Not on filedocumented in this encounter Care Teams Complex Care Nurse Relationship Specialty Start Date End Date Lenore Hensley MD 701 [facility] [place] [address] [place] [address] PCP - General Family Medicine 01/29/21 documented as of this encounter
--- OUTSIDE RECORDS SUMMARY | 2024-05-31 12:40 | XMS_ITS | Encounter Summary ---
Author Organization [facility] Address [address] [place] [address] Care Team Providers Care Regional Engagement Consultant Name Role Phone Lenore Hensley MD Primary Care Provider [phone] Reason for Visit * Reason Comments Medication Refill Encounter Details Date Type Department Care Team (Late Contact Info) Description 10/24/2023 Refill [facility] Neurology [address] [phone] Win Cristobal MD [address] [place] [address] Orofacial dystonia Social History Tobacco Use Types Packs/Day Years [...] Description 07/27/2024 4:00 PM EDT Procedure visit [facility] Neurology [address] [phone] Win Cristobal MD [address] [place] [address] 6 [place], [place] [phone] 11/02/2024 3:20 PM EDT [facility] [address] [facility] [address] [place] [address] Win Cristobal MD 35 [facility] [address] [place], [place] [address] documented as of this encounter 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
--- OUTSIDE RECORDS SUMMARY | 2024-05-31 12:40 | XMS_ITS | Encounter Summary ---
Author Organization [facility] Address [address] [place] [address] Care Team Providers Care Kennel Manager Dog Track Name Role Phone Lenore Hensley MD Primary Care Provider [phone] Encounter Details Date Type Department Care Team (Late Contact Info) Description 08/16/2021 Scanned Document [facility] Neurology [address] [phone] Win Cristobal MD 35 [facility] [address] [place] [address] Social History Tobacco Use Types Packs/Day Years [...] suspected to have Coronavirus/COVID-19? No / Unsure 08/17/2021 11:55 AM EDT documented as of this encounter Plan of Treatment Upcoming Encounters Date Type Department Care Team (Late Contact Info) Description 07/27/2024 4:00 PM EDT Procedure visit [facility] Neurology [address] [phone] Win Cristobal MD 35 [facility] 6 [place] [address] 11/02/2024 3:20 PM EDT Procedure visit [facility] Neurology [address] [place] [phone] Win Cristobal MD 35 [facility] [address] [place] [address] documented as of this encounter Visit Diagnoses Not on filedocumented in this encounter Care Teams Kennel Manager Dog Track Relationship Specialty Start Date End Date Lenore Hensley MD [address] [place] [address] PCP - General Family Medicine 01/29/21 documented as of this encounter
--- OUTSIDE RECORDS SUMMARY | 2024-05-31 12:40 | XMS_ITS | Encounter Summary ---
Author Organization [facility] Address [address] [place] [address] Care Team Providers Care Mobile Web Application Developer Name Role Phone Lenore Hensley MD Primary Care Provider [phone] Encounter Details Date Type Department Care Team (Late Contact Info) Description 07/10/2023 Scanned Document [facility] NEUROLOGY SCAN Win Cristobal MD 35 [facility] [address] [place], [place] [phone] Social History Tobacco Use Types Packs/Day Years [...] Encounters Date Type Department Care Team ([facility] Contact Info) Description 07/27/2024 4:00 PM EDT Procedure visit [facility] Neurology [address] [phone] Win Cristobal MD [address] [place], [place] [phone] 11/02/2024 3:20 PM EDT Procedure visit [facility] Neurology [address] [phone] Win Cristobal MD 35 [facility] [address] [place] [address] documented as of this encounter Visit Diagnoses Not on filedocumented in this encounter Care Teams Mobile Web Application Developer Relationship Specialty Start Date End Date Lenore Hensley MD [address] [facility] [address] [place] [address] PCP - General Family Medicine 01/29/21 documented as of this encounter
--- OUTSIDE RECORDS SUMMARY | 2024-05-31 12:40 | XMS_ITS | Encounter Summary ---
Author Organization [facility] Address [address] [place], [place] [id number] Care Team Providers Care Special Events Fundraiser Name Role Phone Pcp, No Primary Care Provider Lenore Elmore MD Primary Care Provider [phone] Encounter Details Date Type Department Care Team (Late st Contact Info) Description 12/11/2020 Scanned Document [facility] Neurosurgery [place] [address] [phone] Deanna Paula MD [address] [place] [address] Social History Tobacco Use Types Packs/Day Years Used Date Smoking Tobacco: Former Cigarettes Q uit: 2016 Smokeless Tobacco: Never Alcohol Use Standard Drinks/Week Comments Yes 0 [...] Description 07/27/2024 4:00 PM EDT Procedure visit [facility] Neurology [address] [place] [phone] Win Cristobal MD [address] [place] [address] [address] [place] [address] 11/02/2024 3:20 PM EDT Procedure visit [facility] Neurology [address] [place] [address] Win Cristobal MD 35 [facility] [address] [place] [address] documented as of this encounter Visit Diagnoses Not on filedocumented in this encounter Care Teams Special Events Fundraiser Relationship Specialty Start Date End Date Pcp, No PCP - General General Medicine 02/18/20 01/28/21 Lenore Hensley MD 701 [facility] 110 [place] [address] PCP - General Family Medicine 01/29/21 documented as of this encounter
--- OUTSIDE RECORDS SUMMARY | 2024-05-31 12:40 | XMS_ITS | Clinical Summary ---
Author Organization [address] Address [address] [place] [phone] Phone Care Team Providers Care Laundry Press Operator Name Role Phone Lenore Hensley MD Primary Care Provider [phone] Allergies No known active allergies Medications lactobacillus rhamnosus, GG, (CULTURELLE) 10 billion cell capsule Take 1 capsule by mouth daily. Active multivit-min/fe rrous fumarate (MULTI VITAMIN ORAL) Take by mouth. Active Active Problems No known active problems Social History Tobacco Use Types Packs/Day Years Used Date Smoking Tobacco: Former Smokeless Tobacco: Never Comments No Sex and Gender Information Value Date Recorded Sex Assigned at Not on file Legal Sex Female 2:18 PM EDT Gender Identity Not on file Sexual Orientation Not on file Last Filed Vital Signs Vital Sign Reading Time Taken Comments Blood Pressure 114/74 12/15/2018 9:34 AM EDT Pulse 75 12/15/2018 9:34 AM EDT Temperature 36.8 ??C (98.2 ??F) 12/15/2018 9:34 AM ED T Respiratory Rate - - Oxygen Saturation 98% 12/15/2018 9:34 AM EDT Inhaled Oxygen Concentration - - Weight 58.1 kg (128 lb) 12/15/2018 9:34 AM EDT Height 161.3 cm (5' 3.5 ) 12/15/2018 9:34 AM EDT Body Mass Index 22.32 12/15/2018 9:34 AM EDT Plan of Treatment Health Maintenance Due Date Last Done Comments HIV screening 04/17/1972 Hepatitis C screening 04/17/1977 Tetanus adult (Td q 10,TDAP once) 1979 Breast cancer screening 1999 Lipid disorder screening 1999 Colon cancer screening, Colonoscopy 04/17/2004 Diabetes screening 04/17/2004 Pneumococcal Vaccine (50+ ye ars) (1 of 1 - PCV) 04/17/2009 Shingles vaccine (Shingrix) (1 of 2 - Shingrix (RZV) 2 Dose Standard Series) 04/17/2009 Covid-19 vaccine series (1 - 2023- season) 2023 Osteoporosis screening (bone density) 04/17/2024 Influenza vaccine 10/18/2024 RSV Immunization (1 - 1-dose 75+ series) 04/17/2034 Cervical cancer screening Discontinued Meningococcal Vaccine Aged Out No pauly anat eligible based on patient's age to complete this topic Pneumococcal Vaccine (2 - 49 years) Aged Out No longer eligible b ased on patient's age to complete this topic Insurance Care Teams Laundry Press Operator Relationship Specialty Start Date End Date Lenore Hensley MD PCP - General Internal Medicine 12/15/18
--- OUTSIDE RECORDS SUMMARY | 2024-05-31 12:40 | XMS_ITS | Encounter Summary ---
Author Organization [facility] Address [address] [place] [address] Care Team Providers Care Manager Commercial Sales Name Role Phone Lenore Hensley MD Primary Care Provider [phone] Encounter Details Date Type Department Care Team (Late Contact Info) Description 04/26/2021 Scanned Document [facility] Neurology [address] [phone] Win Cristobal MD 35 [facility] [address] [place] [address] Social History Tobacco Use Types [...] Upcoming Encounters Date Type Department Care Team ([facility] Contact Info) Description 07/27/2024 4:00 PM EDT Procedure visit [facility] Neurology [place] [address] [facility] [address] [place] [address] Win Cristobal MD 35 [facility] 6 [place] [address] 11/02/2024 3:20 PM EDT Procedure visit [facility] Neurology [address] [place] [phone] Win Cristobal MD 35 [facility] [address] [place] [address] documented as of this encounter Visit Diagnoses Not on filedocumented in this encounter Care Teams Manager Commercial Sales Relationship Specialty Start Date End Date Lenore Hensley MD [address] [place] [address] PCP - General Family Medicine 01/29/21 documented as of this encounter
--- OUTSIDE RECORDS SUMMARY | 2024-05-31 12:40 | XMS_ITS | Encounter Summary ---
Author Organization [facility] Address [address] [place] [address] Care Team Providers Care Timber Robber Name Role Phone Lenore Hensley MD Primary Care Provider [phone] Encounter Details Date Type Department Care Team (Late Contact Info) Description 11/15/2021 Scanned Document [facility] Neurology [address] [address] Win Cristobal MD 35 [facility] [address] [place] [address] Social History Tobacco Use Types Packs/Day [...] Description 07/27/2024 4:00 PM EDT Procedure visit [facility] Neurology [address] [phone] Win Cristobal MD 35 [facility] [address] [place] [address] 11/02/2024 3:20 PM EDT Procedure visit [facility] Neurology [address] [phone] Win Cristobal MD 35 [facility] [address] [place] [address] documented as of this encounter Visit Diagnoses Not on filedocumented in this encounter Care Teams Timber Robber Relationship Specialty Start Date End Date Lenore Hensley MD [address] [place] [address] [address] [place] [address] PCP - General Family Medicine 01/29/21 documented as of this encounter
--- OUTSIDE RECORDS SUMMARY | 2024-05-31 12:40 | XMS_ITS | Encounter Summary ---
Author Organization [facility] Address [address] [place] [address] Care Team Providers Care Bulldozer Press Operator Name Role Phone Lenore Hensley MD Primary Care Provider [phone] Encounter Details Date Type Department Care Team (Late Contact Info) Description 04/24/2023 Scanned Document [facility] NEUROLOGY SCAN Win Cristobal MD 35 [facility] [address] [place], [place] [phone] Social History Tobacco Use Types Packs/Day Years [...] Upcoming Encounters Date Type Department Care Team ([facility] Contact Info) Description 07/27/2024 4:00 PM EDT Procedure visit [facility] Neurology [address] [phone] Win Cristobal MD [address] [place], [place] [phone] 11/02/2024 3:20 PM EDT Procedure visit [facility] Neurology [address] [phone] Win Cristobal MD 35 [facility] [address] [place] [address] documented as of this encounter Visit Diagnoses Not on filedocumented in this encounter Care Teams Bulldozer Press Operator Relationship Specialty Start Date End Date Lenore Hensley MD 701 [facility] 110 [place] [address] PCP - General Family Medicine 01/29/21 documented as of this encounter
--- OUTSIDE RECORDS SUMMARY | 2024-05-31 12:40 | XMS_ITS | Encounter Summary ---
Author Organization [facility] Address [address] [place] [address] Care Team Providers Care Agricultural Engineering Technologist Name Role Phone Lenore Hensley MD Primary Care Provider [phone] Encounter Details Date Type Department Care Team (Late st Contact Info) Description 10/17/[address] [facility] NEUROLOGY SCAN Neurology, Scan Social History Tobacco Use Types Packs/Day Years [...] Description 07/27/2024 4:00 PM EDT Procedure visit [facility] Neurology [address] [phone] Win Cristobal MD 35 [facility] [address] [place] [address] 11/02/2024 3:20 PM EDT Procedure visit [facility] Neurology [address] [phone] Win Cristobal MD [address] [place] [address] [address] [place], [place] [address] documented as of this encounter Visit Diagnoses Not on filedocumented in this encounter Care Teams Agricultural Engineering Technologist Relationship Specialty Start Date End Date Lenore Hensley MD [address] [place] [address] PCP - General Family Medicine 01/29/21 documented as of this encounter
--- OUTSIDE RECORDS SUMMARY | 2024-05-31 12:40 | XMS_ITS | Encounter Summary ---
Author Organization [facility] Address [address] [place] [address] Care Team Providers Care Glass Scullion Name Role Phone Lenore Hensley MD Primary Care Provider [phone] Encounter Details Date Type Department Care Team (Late Contact Info) Description 04/27/2021 Scanned Document [facility] Neurology [address] [phone] Win Cristobal MD 35 [facility] [address] [place] [address] Social History Tobacco Use Types [...] Upcoming Encounters Date Type Department Care Team ([facility] Contact Info) Description 07/27/2024 4:00 PM EDT Procedure visit [facility] Neurology [place] [address] [facility] [address] [place] [address] Win Cristobal MD 35 [facility] 6 [place] [address] 11/02/2024 3:20 PM EDT Procedure visit [facility] Neurology [address] [place] [phone] Win Cristobal MD 35 [facility] [address] [place] [address] documented as of this encounter Visit Diagnoses Not on filedocumented in this encounter Care Teams Glass Scullion Relationship Specialty Start Date End Date Lenore Henlsey MD [address] [place] [address] PCP - General Family Medicine 01/29/21 documented as of this encounter
--- OUTSIDE RECORDS SUMMARY | 2024-05-31 12:40 | XMS_ITS | Encounter Summary ---
Author Organization [facility] Address [address] [place] [address] Care Team Providers Care Ram Car Operator Name Role Phone Lenore Hensley MD Primary Care Provider [phone] Encounter Details Date Type Department Care Team (Late Contact Info) Description 04/26/2021 Scanned Document [facility] Neurology [address] [phone] Win Cristobal MD [address] [facility] [address] [place] [address] Social History Tobacco Use Types [...] Upcoming Encounters Date Type Department Care Team ([facility] Contact Info) Description 07/27/2024 4:00 PM EDT Procedure visit [facility] Neurology [place] [address] [facility] [address] [place] [address] Win Cristobal MD 35 [facility] 6 [place] [address] 11/02/2024 3:20 PM EDT Procedure visit [facility] Neurology [address] [place] [phone] Win Cristobal MD 35 [facility] [address] [place] [address] documented as of this encounter Visit Diagnoses Not on filedocumented in this encounter Care Teams Ram Car Operator Relationship Specialty Start Date End Date Lenore Hensley MD [address] [place] [address] PCP - General Family Medicine 01/29/21 documented as of this encounter
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
--- OUTSIDE RECORDS SUMMARY | 2024-05-31 12:40 | XMS_ITS | Clinical Summary ---
Author Organization [facility] Address [address] [place] [address] Phone Care Team Providers Care Repairer Controller Tester Name Role Phone Chirag Brito MD Primary Care Provider [phone] Allergies No known active allergies Medications lactobacillus combination no.4 (Probiotic) 3 billion cell capsule Take by mouth. Active cholecalciferol (VITAMIN D3) 10 mcg/drop (400 unit/drop) liquid Take by mouth. Active multivitamine, geriatric, (Multivitamin 50 Plus) tablet Take by mouth. Active famotidine (Pepcid) 20 mg tabletIndication s:Gastroesophage al reflux disease without esophagitis Take 1 tablet (20 mg total) by mouth 2 (two) times a day. 60 each 11 01/12/2024 Active Active Problems Problem Noted Date Diagnosed Date Gastroesophageal reflux disease without esophagi tis 01/12/2024 Assessment & Plan (01/12/2024 2:09 PM EST): Unsure what medication the patient is referring to. Chart review indicates patient took pantoprazole BID in 2022 and sucralfate QID in 2020. Opting for Pepcid, given patient is relatively asymptomatic today Start pepcid 20mg BID PRN nausea, epigastric discomfort Orders: famotidine (Pepcid) 20 mg tablet; Take 1 tablet (20 mg total) by mouth 2 (two) times a day. 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 Depression 04/22/2006 Cervicalgia 12/10/2004 Surgical History Surgery Date Site/Laterality Comments COLONOSCOPY 07/18/2020 - 08/16/2020 5 year recall ESOPHAGOGASTRODUODENOSCOPY 07/18/2020 - 08/16/2020 small HH SECTION x2 CARPAL TUNNEL RELEASE TOTAL SHOULDER ARTHROPLASTY MASTOPEXY Medical History Medical History Date Comments GERD (gastroesophageal reflux disease) Lyme disease Family History Medical History Relation Name Comments Breast cancer Father's Sister Colon cancer Neg Hx Relation Name Status Comments Father's Sister Alive Social History Tobacco Use Types Packs/Day Years Used Date Smoking Tobacco: Former Cigarettes 0.5 15 Smokeless Tobacco: Never Alcohol Use Standard Drinks/Week Comments Yes 0 (1 standard drink = 0.6 oz pur e alcohol) occasionally Comments No Sex and Gender Information Value Date Recorded Sex Assigned at Female 02/05/2024 8:14 AM EST Legal Sex Female 10:01 AM EST Gender Identity Female 02/05/2024 8:14 AM EST Sexual Orientation Choose not to disclose 2023 8:16 AM EST Obstetrics History Para Term AB IAB SAB Ectopic Multiple Livin g Live Births 2 Last Filed Vital Signs Vital Sign Reading Time Taken Comments Blood Pressure - - Pulse - - Temperature - - Respiratory Rate - - Oxygen Saturation - - Inhaled Oxygen Concentration - - Weight 59 kg (130 lb) 02/02/2024 8:28 AM EST Height 160 cm (5' 3 ) 02/02/2024 8:28 AM EST Body Mass Index 23.03 02/02/2024 8:28 AM EST Plan of Treatment Upcoming Encounters Date Type Department Care Team (Late st Contact Info) Description 08/06/2024 11:00 AM EDT [facility]ointment [facility] at [address] [address] Health Maintenance Due Date Last Done Comments Cervical Cancer Screening: Pap Smear 04/17/1980 Pneumococcal Vaccine: 50+ Years (1 of 1 - PCV) 04/17/2009 Zoster Vaccines (1 of 2) 04/17/2009 DTaP,Tdap,and Td Vaccines (3 - Td or Tdap) 02/15/2018 02/16/2008, 05/01/1993 Cholesterol Screening (Lipid Panel) 01/15/2022 Colorectal Cancer Screening: Colonoscopy 01/15/2022 Depression Screening 01/15/2022 Hepatitis C Screening 01/15/2022 Social Influencers of Health Screening 01/15/2022 COVID-19 Vaccine ( season) 2023 Falls Risk Assessment 04/17/2024 Influenza Vaccine (Season Ended) 2024 03/17/2013, 03/06/2012, 02/03/2009, Additional history exists Breast Cancer Screening 02/01/2026 02/02/20 24, 12/27/2021, 12/04/2020, Additional history exists Osteoporosis Screening (Bone Density Screening) 02/01/2034 02/02/2024 RSV Immunization Adult Patients (1 - 1-dose 75+ series) 04/17/2034 HIB Vaccines Aged Out No longer eligi ble based on patient's age to complete this topic HPV Vaccines Aged Out No longer eligi ble based on patient's age to complete this topic Hepatitis A Vaccines Aged Out No long er eligible based on patient's age to complete this topic Hepatitis B Vaccines Aged Out No long er eligible based on patient's age to complete this topic IPV Vaccines Aged Out No longer eligi ble based on patient's age to complete this topic MMR Vaccines Aged Out No longer eligi ble based on patient's age to complete this topic Meningococcal ACWY Vaccine Aged Out N o longer eligible based on patient's age to complete this topic Meningococcal B Vaccine Aged Out No l onger eligible based on patient's age to complete this topic Pneumococcal Vaccine: Pediatrics (0 to 5 Years) and At-Risk Patients (6 to 64 Years) Aged Out No longer eligible based on patient's age to complete this topic RSV Immunization Patients Under 20 months Aged Out No longer eligible based on patient's age to complete this topic Varicella Vaccines Aged Out No longer eligible based on patient's age to complete this topic Procedures Procedure Name Priority Date/Time Associated Diagnosis Comments BD BONE DENSITY DXA AXIAL SKELETON Routine 02/02/2024 8:46 AM EST Metabolic bone disease MG MAMMO DIGITAL SCREENING W RAFAEL BILAT Routine 02/02/2024 8:29 AM EST Encounter for screening mammogram for breast cancer from Last 3 Months or Most Recently Relevant to Health Maintenance Results * BD Bone Density DXA Axial Skeleton (02/02/2024 8:46 AM EST) Anatomical Region Laterality Modality Wrist, Hip, L-spine Bone Densito metry 02/02/2024 8:46 AM EST Addenda Addendum by Marvin Cuevas MD on 02/02/2024 8:48 AM EST HISTORY: ??The patient is a 63-year-old postmenopausal female with clinical concern for metabolic bone disease. FINDINGS: ??Dual energy x-ray absorptiometry of the lumbar spine and femurs is performed. The mean bone mineral density at L1-2 is 1.061 gm/cm2 which is 91% of that of young normals and 111% of that of age matched controls. This yields a T-score of -0.9 and a Z-score of 0.9 and there is therefore no evidence of osteoporosis or osteopenia here. The mean bone mineral density of the femurs bilaterally is 0.984 gm/cm2 which is 98% of that of young normals and [116% of that of age matched controls. ??This yields a T-score of -0.2 and a Z-score of 1.1 and there is therefore no evidence of osteoporosis or osteopenia here. IMPRESSION: 1. There is no evidence of osteoporosis or osteopenia. 2. FRAX analysis yields a 10-year probability of major osteoporotic fracture of 7.2% and a 10-year probability of hip fracture of 0.4%. Code 76747 -------- FINAL REPORT -------- Dictated By: Marvin Cuevas Dictated Date: 02/02/2024 08:46 ET Assigned Physician: Marvin Cuevas Reviewed and Electronically Signed By: Marvin Cuevas Signed Date: 02/02/2024 08:48 ET Workstation ID: [id number] Transcribed By: Self Edit Transcribed Date: 02/02/2024 08:46 ET Impressions 02/02/2024 8:48 AM EST 1. There is no evidence of osteoporosis or osteopenia. 2. FRAX analysis yields a 10-year probability of major osteoporotic fracture of 7.2% and a 10-year probability of hip fracture of 0.4%. Code 90308 -------- FINAL REPORT -------- Dictated By: Marvin Cuevas Dictated Date: 02/02/2024 08:46 ET Assigned Physician: Marvin Cuevas Reviewed and Electronically Signed By: Marvin Cuevas Signed Date: 02/02/2024 08:48 ET Workstation ID: [id number] Transcribed By: Self Edit Transcribed Date: 02/02/2024 08:46 ET Narrative 02/02/2024 8:48 AM EST HISTORY: ??The patient is a 63-year-old postmenopausal female with clinical concern for metabolic bone disease. FINDINGS: ??Dual energy x-ray absorptiometry of the lumbar spine and femurs is performed. The mean bone mineral density at L1-2 is 1.061 gm/cm2 which is 91% of that of young normals and 111% of that of age matched controls. This yields a T-score of -0.9 and a Z-score of 0.9 and there is therefore no evidence of osteoporosis or osteopenia here. The mean bone mineral density of the femurs bilaterally is 0.984 gm/cm2 which is 98% of that of young normals and [116% of that of age matched controls. ??This yields a T-score of -0.2 and a Z-score of 1.1 and there is therefore no evidence of osteoporosis or osteopenia here. Procedure Note Marvin Cuevas MD - 02/02/2024 HISTORY: The patient is a 63-year-old postmenopausal female with clinicalconcern for metabolic bone disease. FINDINGS: Dual energy x-ray absorptiometry of the lumbar spine and femursis performed. The mean bone mineral density at L1-2 is 1.061 gm/cm2 whichis 91% of that of young normals and 111% of that of age matched controls.This yields a T-score of -0.9 and a Z-score of 0.9 and there is thereforeno evidence of osteoporosis or osteopenia here. The mean bone mineral density of the femurs bilaterally is 0.984 gm/fl6hrwfo is 98% of that of young normals and [116% of that of age matchedcontrols. This yields a T-score of -0.2 and a Z-score of 1.1 and there istherefore no evidence of osteoporosis or osteopenia here. IMPRESSION: 1. There is no evidence of osteoporosis or osteopenia. 2. FRAX analysis yields a 10-year probability of major osteoporoticfracture of 7.2% and a 10-year probability of hip fracture of 0.4%. Code 39383 -------- FINAL REPORT -------- Dictated By: Marvin Cuevas Dictated Date: 02/02/2024 08:46 ET Assigned Physician: Marvin Cuevas Reviewed and Electronically Signed By: Marvin Cuevas Signed Date: 02/02/2024 08:48 ET Workstation ID: [id number] Transcribed By: Self Edit Transcribed Date: 02/02/2024 08:46 ET Georgiana Fernandez MD IMG DXA PROCEDURES Edited Result - Final * (ABNORMAL) MG Mammo Digital Screening w Rafael bilat (02/02/2024 8:29 AM EST) Anatomical Region Laterality Modality Breast Bilateral Mammography 02/03/2024 2:20 PM EST Impressions 02/03/2024 3:26 PM EST Bilateral groupings of calcifications, additional imaging required. BI-RADS: ??Category 0: Incomplete - Need Additional Imaging Evaluation RECOMMENDATION(S): 1: Special mammographic view(s) needed BILATERAL -------- FINAL REPORT -------- Dictated By: ESAU KIM Dictated Date: 02/03/2024 14:20 ET Assigned Physician: ESAU KIM Reviewed and Electronically Signed By: ESAU KIM Signed Date: 02/03/2024 15:26 ET Workstation ID: [id number] Transcribed By: Self Edit Transcribed Date: 02/03/2024 14:20 ET Narrative 02/03/2024 3:26 PM EST EXAM: MG MAMMO DIGITAL SCREENING W RAFAEL BILAT EXAM DATE AND TIME: 02/02/2024 8:07 AM HISTORY: ??Screening mammogram 4 breast cancer COMPARISON: ??01/02/2023 through 10/13/2019 TECHNIQUE: Bilateral digital breast tomosynthesis was performed in the CC and MLO projections. Computer aided detection with iCAD ProFound AI 3D 3.1 was employed. TISSUE DENSITY: b. There are scattered areas of fibroglandular density. FINDINGS: Bilateral groupings of calcifications are identified. ??On the right there is seen in the upper outer quadrant anteriorly. ??On the left there are also seen anteriorly along the inferior periareolar margin. ??Spot magnification views of these are recommended in both CC and true lateral as well as full field true lateral projections bilaterally. Procedure Note Esau Kim MD - 02/03/2024 EXAM: MG MAMMO DIGITAL SCREENING W RAFAEL BILAT EXAM DATE AND TIME: 02/02/2024 8:07 AM HISTORY: Screening mammogram 4 breast cancer COMPARISON: 01/02/2023 through 10/13/2019 TECHNIQUE: Bilateral digital breast tomosynthesis was performed in the CCand MLO projections. Computer aided detection with iCAD ProFound AI 3D 3.1was employed. TISSUE DENSITY: b. There are scattered areas of fibroglandular density. FINDINGS: Bilateral groupings of calcifications are identified. On the right thereis seen in the upper outer quadrant anteriorly. On the left there arealso seen anteriorly along the inferior periareolar margin. Spotmagnification views of these are recommended in both CC and true lateralas well as full field true lateral projections bilaterally. IMPRESSION: Bilateral groupings of calcifications, additional imaging required. BI-RADS: Category 0: Incomplete - Need Additional Imaging Evaluation RECOMMENDATION(S): 1: Special mammographic view(s) needed BILATERAL -------- FINAL REPORT -------- Dictated By: ESAU KIM Dictated Date: 02/03/2024 14:20 ET Assigned Physician: ESAU KIM Reviewed and Electronically Signed By: ESAU KIM Signed Date: 02/03/2024 15:26 ET Workstation ID: [id number] Transcribed By: Self Edit Transcribed Date: 02/03/2024 14:20 ET us Self Referral Sppl IMG BI PROCEDURES Final Resul t from Last 3 Months or Most Recently Relevant to Health Maintenance Insurance [facility] Care Teams Repairer Controller Tester Relationship Specialty Start Date End Date Chirag Brito MD [address] [place] [address] PCP - General 07/30/23
--- OUTSIDE RECORDS SUMMARY | 2024-05-31 12:40 | XMS_ITS | Encounter Summary ---
Author Organization [facility] Address [address] [place] [address] Care Team Providers Care City Routeman Name Role Phone Lenore Hensley MD Primary Care Provider [phone] Encounter Details Date Type Department Care Team (Late Contact Info) Description 10/09/2021 Scanned Document [facility] Neurology [address] [address] Marian Freeman APRN [address] [place] [address] Social History Tobacco Use Types Packs/Day Years [...] PM EDT Procedure visit [facility] [address] [phone] Win Cristobal MD [address] [place] [address] [address] [place] [address] 11/02/2024 3:20 PM EDT Procedure visit [facility] Neurology [address] [phone] Win Cristobal MD [address] [facility] [address] [place] [address] documented as of this encounter Visit Diagnoses Not on filedocumented in this encounter Care Teams City Routeman Relationship Specialty Start Date End Date Lenore Hensley MD [address] [place] [address] PCP - General Family Medicine 01/29/21 documented as of this encounter
--- OUTSIDE RECORDS SUMMARY | 2024-05-31 12:40 | XMS_ITS | Encounter Summary ---
Author Organization [facility] Address [address] [place] [address] Care Team Providers Care Business Development Specialist Name Role Phone Lenore Hensley MD Primary Care Provider [phone] Encounter Details Date Type Department Care Team (Late Contact Info) Description 01/29/2023 Scanned Document [facility] NEUROLOGY SCAN Win Cristobal MD [address] [facility] [address] [place], [place] [phone] Social History Tobacco Use Types Packs/Day Years [...] Upcoming Encounters Date Type Department Care Team ([facility] Contact Info) Description 07/27/2024 4:00 PM EDT Procedure visit [facility] Neurology [address] [phone] Win Cristobal MD [address] [place], [place] [phone] 11/02/2024 3:20 PM EDT Procedure visit [facility] Neurology [address] [phone] Win Cristobal MD [address] [facility] [address] [place] [address] documented as of this encounter Visit Diagnoses Not on filedocumented in this encounter Care Teams Business Development Specialist Relationship Specialty Start Date End Date eLnore Hensley MD [address] [facility] [address] [place] [address] PCP - General Family Medicine 01/29/21 documented as of this encounter
--- OUTSIDE RECORDS SUMMARY | 2024-05-31 12:40 | XMS_ITS | Encounter Summary ---
Author Organization [facility] Address [address] [place], [place] [id number] Care Team Providers Care Soil Expert Name Role Phone Lenore Hensley MD Primary Care Provider [phone] Encounter Details Date Type Department Care Team (Late Contact Info) Description 11/12/2023 Scanned Document [facility] NEUROLOGY SCAN Neurology, Scan Social History Tobacco [...] Description 07/27/2024 4:00 PM EDT Procedure visit [facility] Neurology [address] [phone] Win Cristobal MD [address] [facility] [address] [place] [address] 11/02/2024 3:20 PM EDT Procedure visit [facility] Neurology [address] [phone] Win Cristobal MD [address] [facility] [address] [place], [place] [address] documented as of this encounter Visit Diagnoses Not on filedocumented in this encounter Care Teams Soil Expert Relationship Specialty Start Date End Date Lenore Hensley MD [address] [place] [address] PCP - General Family Medicine 01/29/21 documented as of this encounter
--- OUTSIDE RECORDS SUMMARY | 2024-05-31 12:40 | XMS_ITS | Encounter Summary ---
Author Organization [facility] Address [address] [place] [address] Care Team Providers Care Supervisor Coal Handling Name Role Phone Lenore Hensley MD Primary Care Provider [phone] Encounter Details Date Type Department Care Team (Late Contact Info) Description 04/26/2021 Scanned Document [facility] Neurology [address] [phone] Win Cristobal MD [address] [facility] [address] [place] [address] Social History Tobacco Use Types [...] Upcoming Encounters Date Type Department Care Team ([facility] Contact Info) Description 07/27/2024 4:00 PM EDT Procedure visit [facility] Neurology [place] [address] [facility] [address] [place] [address] Win Cristobal MD [address] [facility] 6 [place] [address] 11/02/2024 3:20 PM EDT Procedure visit [facility] Neurology [address] [place] [phone] Win Cristobal MD 35 [facility] [address] [place] [address] documented as of this encounter Visit Diagnoses Not on filedocumented in this encounter Care Teams Supervisor Coal Handling Relationship Specialty Start Date End Date Lenore Hensley MD [address] [place] [address] PCP - General Family Medicine 01/29/21 documented as of this encounter
--- OUTSIDE RECORDS SUMMARY | 2024-05-31 12:41 | XMS_ITS | Encounter Summary ---
Author Organization [facility] Address [address] [place] [address] Care Team Providers Care Newspaper Journalist Name Role Phone Lenore Hensley MD Primary Care Provider [phone] Encounter Details Date Type Department Care Team (Late st Contact Info) Description 10/23/2018 Scanned Document [facility] at [address] [facility] [address] [facility] [place] [address] Bob Jiménez MD [address] [place] [phone] Social History Tobacco Use Types Packs/Day Years Used Date Smoking Tobacco: Never Assessed Comments Unknown Sex and Gender Information Value Date Recorded Sex Assigned at Not on file Legal Sex Female 2:18 PM EDT Gender Identity Not on file Sexual Orientation Not on file documented as of this encounter Plan of Treatment Not on file documented as of this encounter Visit Diagnoses Not on filedocumented in this encounter Care Teams Newspaper Journalist Relationship Specialty Start Date End Date Lenore Hensley MD PCP - General Internal Medicine 12/15/18 documented as of this encounter
--- OUTSIDE RECORDS SUMMARY | 2024-05-31 12:41 | XMS_ITS | Encounter Summary ---
Author Organization [facility] Address [address] [place] [address] Care Team Providers Care Dispute Resolution Analyst Name Role Phone Lenore Hensley MD Primary Care Provider [phone] Encounter Details Date Type Department Care Team (Late st Contact Info) Description 11/27/2018 Scanned Document [facility] at [address] [address] [place] [address] [address] Social History Tobacco Use Types Packs/Day Years [...] on filedocumented in this encounter Care Teams Dispute Resolution Analyst Relationship Specialty Start Date End Date Lenore Hensley MD PCP - General Internal Medicine 12/15/18 documented as of this encounter
--- OUTSIDE RECORDS SUMMARY | 2024-05-31 12:41 | XMS_ITS ---
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 :1960???Age:63 Y???Sex:Female D ate:07/18/2023 Address:[address] [place], [place] [address] Pcp:LYNN ESTRADA PA-C Subjective: * Chief Complaints: * ???1. 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 * Medical History:? Objective: * Vitals:? Assessment: Plan: * Treatment: * Images: Billing Information: * Visit Code:? * Procedure Codes:? * Electronic signature of Gabi Fernandez MD on 05/31/2024 at 12:40 PM EDT Sign off status: Pending * Appointment Provider:?Georgiana Fernandez M.D. Date:?07/18/2023 Generated for Leola khalil/José/Rosie on:?05/31/2024 12:40 PM EDT
--- OUTSIDE RECORDS SUMMARY | 2024-05-31 12:41 | XMS_ITS | Encounter Summary ---
Author Organization [facility] Address [address] [place] [address] Care Team Providers Care Building Maintenance Repairer Name Role Phone Lenore Hensley MD Primary Care Provider [phone] Encounter Details Date Type Department Care Team (Late Contact Info) Description 08/21/2021 Scanned Document [facility] Neurology [address] [phone] Win Cristobal MD [address] [facility] [address] [place] [address] Social History Tobacco Use Types Packs/Day Years [...] 07/27/2024 4:00 PM EDT Procedure visit [facility] Neurology [address] [phone] Win Cristobal MD [address] [facility] [address] [place] [address] 11/02/2024 3:20 PM EDT Procedure visit [facility] Neurology [address] [place] [phone] Win Cristobal MD [address] [facility] [address] [place] [address] documented as of this encounter Visit Diagnoses Not on filedocumented in this encounter Care Teams Building Maintenance Repairer Relationship Specialty Start Date End Date Lenore Hensley MD [address] [place] [address] PCP - General Family Medicine 01/29/21 documented as of this encounter
--- OUTSIDE RECORDS SUMMARY | 2024-05-31 12:41 | XMS_ITS | Clinical Summary ---
Author Organization [facility] Address [address] [place] [address] Care Team Providers Care Room Service Runner Name Role Phone Lenore Hensley MD Primary Care Provider [phone] Allergies Active Allergy Reactions Criticality Noted Date Comments Tuberculin, Ppd Other (See Comments) 06/12/2009 Pt has received the BCG vaccination as a child Medications Medication Sig Dispensed Refills Start Date End Date Status cholecalciferol (VITAMIN D3) 125 MCG (5000 UT) tablet Take 1 tablet (5,000 Units total) by mouth daily. Active MAGNESIUM CITRATE PO Take 1 tablet by mouth daily as needed. Active PROBIOTIC PRODUCT PO Take 1 capsule by mouth daily. Active clobetasol (OLUX) 0.05 % topical foam APPLY EVERY DAY TWICE A DAY TO BACK OF SCALP NEEDED ITCH 11/07/2020 Active ciclopirox (LOPROX) 0.77 % cream APPLY AM AND PM TO TOPS, SIDES, BOTTOM OF FEET, BETWEEN TOES FOR 4 WEEKS. 05/01/2021 Active baclofen (LIORESAL) 5 MG tablet Take 1 tablet (5 mg total) by mouth 3 (three) times a day as needed. 11/01/2021 Active traZODone (DESYREL) 50 MG tablet Take 1 tablet (50 mg total) by mouth nightly as needed. for sleep 07/09/2022 Active PANTOprazole (PROTONIX) 20 MG tablet Take 1 tablet (20 mg total) by mouth 2 (two) times a day. 07/11/2022 Active OMEprazole (PriLOSEC) 20 MG capsule TAKE ONE CAPSULE BY MOUTH EVERY DAY 30 MINUTES BEFORE A MEAL 05/03/2022 Active estradiol (ESTRACE) 0.01 % vaginal cream APPLY 1 GRAM TO AFFECTED AREA TWICE A WEEK 05/02/2022 Active metroNIDAZOLE (METROGEL) 0.75 % vaginal gel USE 1 APPLICATORFUL AT BEDTIME VAGINAL TWO TIMES A WEEK 05/02/2022 Active incobotulinumtoxinA (XEOMIN) injectionIndication s:Orofacial dystonia INJECT 300 UNITS IM EVERY 12 WEEKS 1 each 3 11/04/2022 Active omega-3 fatty acids 1000 MG Cap capsule Take 1 capsule (1,000 mg total) by mouth daily. Active multivitamin Tab tablet Take 1 tablet by mouth daily. Active valACYclovir (VALTREX) 500 MG tablet Take 1 tablet (500 mg total) by mouth as needed. 07/27/2023 Active Lactobacillus Rhamnosus, GG, (Culturelle) Cap Take 1 capsule by mouth daily. Active incobotulinumtoxinA (Xeomin) injectionIndication s:Orofacial dystonia INJECT 300 UNITS INTO THE MUSCLES EVERY 12 WEEKS FOR IDIOPATHIC OROFACIAL DYSTONIA. (MUST RECONSTITUTE) 3 each 3 10/24/2023 Active Yuvafem 10 MCG vaginal tablet Insert 1 tablet (10 mcg total) into the vagina 2 (two) times a week. 10/04/2023 Active naproxen (NAPROSYN) 500 MG tablet Take 1 tablet (500 mg total) by mouth 2 times daily (every 12 hours) as needed for moderate pain. 08/20/2023 Active cyclobenzaprine (FLEXERIL) 5 MG tablet Take 1 tablet (5 mg total) by mouth 3 (three) times a day as needed for muscle spasms. 10/14/2023 Active progesterone (PROMETRIUM) 100 MG capsule Take 1 capsule (100 mg total) by mouth daily. 03/08/2024 Active estradiol (CLIMARA) 0.0375 MG/24HR patch Place 1 patch on the skin once a week. 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] 04/20/2024 Travel 04/15/2024 Telephone [facility]rology [address] [phone] Win Cristobal MD from Last 3 Months Family History Medical History Relation Name Comments ADD / ADHD Brother 1 Anxiety disorder Brother 1 No Known Problems Brother 2 No Known Problems Brother 3 Dementia Father Other Father PSP Parkinsonism Father Tremor Father Osteoporosis Mother Other Mother hip replacement No Known Problems Son 1 Other Son 2 lyme disease Relation Name Status Comments Brother 1 Alive Brother 2 Alive Brother 3 Alive Father Mother Alive Son 1 Alive Son 2 Alive Social History Tobacco Use Types Packs/Day [...] Orientation Heterosexual (straight) 11/12 1:43 PM EDT Last Filed Vital Signs Vital Sign Reading Time Taken Comments Blood Pressure 124/86 04/20/2024 3:33 PM EST man ually Pulse 78 04/20/2024 3:33 PM EST pulse ox Temperature 35.9 ??C (96.7 ??F) 11/19/2021 1:58 PM ED T check-in Respiratory Rate - - Oxygen Saturation 96% 04/20/2024 3:33 PM EST pulse ox Inhaled Oxygen Concentration - - Weight 58.1 kg (128 lb) 04/20/2024 3:33 PM EST f ully clothed Height 160 cm (5' 3 ) 04/20/2024 3:33 PM EST on average Body Mass Index 22.67 04/20/2024 3:33 PM EST Plan of Treatment Upcoming Encounters Date Type Department Care Team (Late st Contact Info) Description 07/27/2024 4:00 PM EDT Procedure visit [facility] Neurology [address] [place] [phone] Win Cristobal MD [address] [place] [address] 11/02/2024 3:20 PM EDT Procedure visit [facility] [address] [place] [phone] Win Cristobal MD [address] [place] [address] Health Maintenance Due Date Last Done Comments Hepatitis C Virus Screening 1959 HIV Screening 04/17/1972 DTaP/Tdap/Td Vaccines (1 - Tdap) 04/17/1978 Pap Smear (Ages 21-65) 04/17/1980 Mammogram 1999 Colonoscopy 04/17/2004 Pneumococcal Vaccines 50+ (1 of 1 - PCV) 04/17/2009 Zoster (Shingles) Vaccine (1 of 2) 04/17/2009 Influenza Vaccine 09/18/2023 01/01/2018, , 03/17/2013, Additional history exists COVID-19 Vaccine ( season) 2023 04/16/2020, 03/26/2020 DXA Bone Density (Females,Ages 65 and older) 04/17/2024 RSV Vaccine 60 years and older and Patients (1 - 1-dose 75+ series) 04/17/2034 Hepatitis B Vaccines Aged Out No long er eligible based on patient's age to complete this topic Care Teams Room Service Runner Relationship Specialty Start Date End Date Lenore Hensley MD [address] [place] [id number] PCP - General Family Medicine 01/29/21
--- OUTSIDE RECORDS SUMMARY | 2024-05-31 12:41 | XMS_ITS | Patient Health Record ---
Author Organization [facility] Address [address] [address] Care Team Providers Care Roof Fixer Name Role Phone LYNN ESTRADA PA-C Primary Care Provider Georgiana Lau Unavailable [phone] Allergies No Known Allergies Results Component Value Reference Range Notes Urinalysis Reviewed date:10/02/2023 03:33:51 PM Interpretation: Performing Lab: Notes/Report: PH 7.0 PROTEIN Neg GLUCOSE Neg BLOOD Neg Reason For Referral No Information Medications Medication SIG (Take, Route, Frequency, Duration) [...] been since you last smoked? 5-10 years Problems Problem Type SNOMED Code ICD Code Onset Dates Problem Status W/U Status Risk Notes Problem Postmenopausal atrophic vaginitis (87487414) Postmenopausal atrophic vaginitis (N95.2) Active confirmed Problem Postmenopausal bleeding (99670036) Postmenopausal bleeding (N95.0) Active confirmed Problem Subacute and chronic vaginitis (N76.1) Active confirmed Problem Atrophy of vulva (630480164) Atrophy of vulva (N90.5) Active confirmed Problem Screening for malignant neoplasm of breast (958761337) Encounter for screening mammogram for malignant neoplasm of breast (Z12.31) Active confirmed Problem History of dysplasia of cervix (334137315) Personal history of cervical dysplasia (Z87.410) Active confirmed Vital Signs Temperature 98.1 degrees Fahrenheit 10/02/2023 Blood pressure diastolic 76 mm Hg 10/02/2023 Height 64 in 10/02/2023 Blood pressure systolic 104 mm Hg 10/02/2023 Weight 131 lbs 10/02/2023 BMI 22.48 kg/m2 10/02/2023 Encounters Encounter Location Date Provider Diagnosis [facility] [employer] [place] [address] [employer] [address] [phone] 10/02/2023 Georgiana Fernandez Encounter for gynecological examination (general) (routine) without abnormal findings Z01.419 ; Encounter for screening mammogram for malignant neoplasm of breast Z12.31 ; Postmenopausal bleeding N95.0 ; Personal history of cervical dysplasia Z87.410 ; Herpesviral infection, unspecified B00.9 ; Acute candidiasis of vulva and vagina B37.31 ; Postmenopausal atrophic vaginitis N95.2 and Encounter for screening for osteoporosis Z13.820 [facility] [employer] [place] [address] [employer] [facility] [address] [place] [address] 10/02/2023 Georgiana Fernandez Assessments Encounter Date Diagnosis (ICD Code) Assessment [...] BONE DENSITY WAS ORDERED. Plan Of Treatment Pending Test Test Name Order Date Sonohysterogram 04/26/2019 Sonohysterogram 2023 MAMMOGRAM, SCREENING 07/16/2022 MAMMOGRAM, SCREENING 10/02/2023 MAMMOGRAM, SCREENING 05/08/2020 MAMMOGRAM, SCREENING 07/05/2021 Urinalysis 07/05/2021 Urinalysis 05/08/2020 Urinalysis 11/21/2020 Urinalysis 08/19/2019 ONE SWAB 08/19/2019 ONE SWAB 12/05/2020 ONE SWAB 10/09/2021 ONE SWAB 05/02/2022 ONE SWAB 12/27/2022 ENDOMETRIAL BX 2023 ENDOMETRIAL BX 04/26/2019 THIN PREP,HPV,LO IF HPV+ (>29YR)(DIAG) 07/16/2022 BONE DENSITY 07/16/2022 BONE DENSITY 10/02/2023 MM Digital Mammo Screening 10/02/2023 MM Digital Mammo Screening 07/16/2022 MM Digital Mammo Screening 07/05/2021 MM Digital Mammo Screening 05/08/2020 Diagnostic Left Breast Mammo/US 12/28/19 23 Next Appt Details Provider Name:Georgiana dockery, 10/07/2024 01:40:00 PM, [address] [facility], [address], [place], [address], Insurance Providers Payer Name Payer Address Payer Phone Subscriber Number Group Number Insured Name Patient Relationship to Insured Coverage Start Date Coverage End Date [employer] [address] [place] [address] [phone] [id number] SUKI HERNANDEZ Self - patient is the insured Medical (General) History Medical History History ICD Code Unspecified osteoarthritis, unspecified site M19.90 Postmenopausal bleeding N95.0 Postmenopausal atrophic vaginitis N95.2 Personal history of cervical dysplasia Z 87.410 Inconclusive mammogram R92.2 Atrophy of vulva N90.5 Hormone replacement therapy Z79.890 Surgical History Surgery Date(Month/Year) Shoulder Replacement 01/2009 x 2 1988 & 1992 2 Carpal Tunnel Surgeries 2013 Colonoscopy Hospitalization History Reason Date(Month/Year) See Surgical Hx
== END 2024-05-31 10:49 | disposition home or self-care (01) ==
LOC: HO.CT 10:48
PROVIDERS: PCP Physician Assistant; Visit Provider Internal Medicine Pulmonary Disease
DX: R91.8 Other nonspecific abnormal finding of lung field (principal); R07.81 Pleurodynia
CPT/HCPCS: 71250

== ENCOUNTER → 2024-05-31 10:51 | Outpatient (BNV) | payer MEDICARE, SELFPAY | PROVIDERS: PCP Physician Assistant; Visit Provider Student in an Organized Health Care Education/Training Program | DX: R91.8 Other nonspecific abnormal finding of lung field (principal) | CPT/HCPCS: 71250 ==

== ENCOUNTER 2024-07-19 08:50 | Outpatient (AMB) | payer MEDICARE, SELFPAY ==
[2024-07-19 08:54] VITALS: BP 100/60; PULSE 63; O2SAT 99; BMI 24.2
--- NOTE | 2024-07-19 08:54 | MHC.OFFVIS ---
Vital Signs 07/19/24 08:54 Height 5 ft 3 in Weight 136 lb 10.986 oz BMI 24.2 BP 100/60 Blood Pressure Location Lt brachial Position Sitting Pulse 63 Pulse Source Pulse Oximeter Pulse Oximetry (%) 99 Oxygen Delivery Method Room Air Intake Visit Reasons: COPD/CT Follow Up Housing And Residence Life Director Required: No Accompanied by: Self / Same As Patient Allergies No Known Allergies Allergy (Verified 07/19/24 08:57) HPI Comments Details: The patient is a 64-year-old woman with a known history of pulmonary nodules and history of smoking history with a new diagnosis of dystonia that she has been dealing with currently getting Botox shot to her jaw. When she walks a goes up hills or flights of stairs she does get more shortness of breath. It a becomes that her dystonia causes more shifting of her jaw and to some degree obstructing the upper airway causing her to have a hard time with her breathing due to increased resistance. She does use a mouth guard due to her grinding. We did look at her CT scan of the chest that she had back in March 2019 this was a low-dose steroid radiation CT scan demonstrated no evidence of any lymphadenopathy and she does have bilateral pulmonary nodules. Based on the fact that the have been stable she will get a CT scan in a year's time. In the office we did do spirometry demonstrating normal flow volume loop without any evidence of any dynamic extrathoracic or intrathoracic obstruction at this time. 02/21/2023 the patient is here for a pulmonary follow-up visit. The patient overall is no better. She continues to have the significant shortness of breath with Exertion. She has a hard time in the gym. I do believe that most of her symptoms are due to the distal new resulting in a dynamic upper airway obstruction. She has already had if will cardiac workup. She was severity evaluated by GI without any significant findings. The patient has been describing also some right and left upper abdominal discomfort, but, now migrating now more in the epigastric area and xiphoid area. The area is very tender. When she does cross training becomes very uncomfortable at times. It appears to be musculoskeletal as well. It is pretty much reproducible my examination suggesting that is costochondritis. During the office visit we did go for a walking oximetry test we did go 5 flights of stairs. The patient was able to complete the 5 flights although she was winded with dyspnea score of 7/10. Pulse ox is stable she definitely had the facial dystonia during the increase exercise. Heart rate did increase to 130 beats per minute which may also be contributing. At this point the patient would like to get answers. Will go ahead and request an exercise tolerance test at [facility]. In addition to that she does wake up short of breath. She does have increased daytime drowsiness with an Irving score of 10/24. Will go ahead and request a home sleep study at this time. 05/16/2023 the patient is here for a pulmonary follow-up visit. She continues to have dyspnea on exertion. moderate severity. In part has do with her dystonia limiting her upper ventilation. She did undergo a cardiopulmonary exercise tolerance test at [facility]. She did wear a mouthpiece. While wearing the mouthpiece she did feel like she could actually exercise longer than usual which is reassuring. Although she did not meet her aerobic capacity. The biggest limitation was more of a cardiovascular limitation. The heart rate the not reach peak in yet, but, the patient could no longer exercise as she did her maximum exercise capacity. She had plenty of pulmonary reserve suggesting that it was not a pulmonary limitation. Again, the mouthpiece did help her breathing. I did provide her a mouth guard that she can use while exercising in the home that will allow her upper airway to stay patent while she develops significant dystonia. She does have a weekend caregiver. She recently was seen by weekend caregiver. And from a cardiac standpoint seems like the patient is doing well. In view of the abnormal cardiopulmonary exercise tolerance test, however, consider repeating her cardiac stress test potentially a nuclear stress test to further follow-up the abnormal findings. The patient also continues to have chest discomfort. Appears to be musculoskeletal in nature. I suspect that probably would be related to diaphragmatic spasms. Although, now appears to be migrating up. I will request a bone scan to see if there is any skeletal etiologies to explain her chest discomfort at this time. 10/14/2023 the patient is here for a pulmonary follow-up visit. Overall she is doing okay. The mouthpiece did not help her. She still has a significant dystonia does affecting her exercise capacity. She does use Botox with partial improvement in addition to that she has been on baclofen. Still having some difficulties. she also been having left-sided lower chest discomfort likely diaphragmatic involvement. She did undergo a bone scan no evidence of any bone meds. She does have some areas of arthritis but nothing to explain her underlying chest pain. The patient also had CT scans of the chest without any parenchymal disease or pleural based disease to explain her chest pain. She also underwent a cardiopulmonary exercise tolerance test was reassuring. The weathers issue is mainly the upper airway obstruction due to the significant dystonia with exercise. The patient has not tried Flexeril. We can try small dose of Flexeril of 2.5-5 mg to try to help her with her significant muscle spasms with the hope that the small dose does not cause significant daytime drowsiness. If she does develop daytime drowsiness she is going to have to stop medicine the patient sure that drive or be driving while on Flexeril. 07/19/2024 the patient is here for a pulmonary follow-up visit. She still complaining of the difficulty breathing. She does have the actual with dystonia causing airway resistance that can cause him to have some difficulty with exhalation and also her inhalation. The patient does have some mosaic pattern CAT scan so therefore will start her on Symbicort see this provides some relief as well. In the meantime the patient is still complains of the upper abdominal lower chest discomfort. Thought to be related as well the patient did have a CT scan of the chest which I personally reviewed back in May 2024 and did compared to her CAT scan from 2023. She appears to have new findings including a 7 mm pleural-based pulmonary nodule in the right lower lobe and a smaller 1 or smaller couple once on the left side as well. These are new findings that were not seen on previous CT scan although the radiologist did not read the results in the very limited report that was provided. Therefore, based on the size of the nodular density that I knew will go ahead and repeat a CAT scan 4 months from the last which will be in August. Will follow-up and will get her to a different Radiology place and she is very uncomfortable with the fact that the did not document significant nodules noted. Will follow-up CAT scan she has not issues prior to this she will call for an earlier assessment. [facility] Medical History (Updated 02/23/23 @ 22:51 by Luis Griffin MD) Costochondritis Dystonia Spasm of diaphragm COPD (chronic obstructive pulmonary disease) Pulmonary nodules Personal history of nicotine dependence Chest pain Hyperlipidemia Coronary artery calcification Mild ascending aorta dilatation History of bacterial meningitis in childhood Surgical History (Updated 12/26/22 @ 11:01 by Kayleigh Reardon PA-C) History of knee surgery History of carpal tunnel surgery of left wrist History of shoulder replacement History of 2 sections Social History Patient Tobacco Use Status: Former Tobacco user Tobacco use type: Cigarette Years Smoked: 17 years old Review of Systems Const Reports difficulty sleeping and Denies night sweats ENT Denies change in voice, Reports facial pain, Denies lip swelling, Denies mouth pain, Reports nasal congestion, Reports nasal discharge, Reports neck pain and Denies tongue swelling Card Reports chest pain, Reports dyspnea and Reports dyspnea on exertion Resp Reports cough, Reports dyspnea and Reports dyspnea on exertion GI Reports abdominal pain, Reports GI cramping and Reports dyspepsia Musc Denies no additional complaints and Reports neck pain Neuro Denies Neuro-related abnormal movements Psych Denies no additional complaints Josse/Lymph Denies easy bleeding and Denies lymphadenopathy Aller/Immun Denies lip swelling and Denies tongue swelling Physical Exam Vital Signs: Last Vital Signs Pulse 63 07/19/24 08:54 BP 100/60 07/19/24 08:54 Pulse Ox 99 07/19/24 08:54 Oxygen Delivery Method Room Air 07/19/24 08:54 BMI result Body Mass Index 24.2 Const General: alert HEENT Head: Yes other (facial dystonic, severe with activity) Neck Neck: Yes normal visual inspection, Yes full ROM and Yes no lymphadenopathy Chest Chest palpation & inspection: localized rib tenderness with anteroposterior compression Resp Auscultation: clear to auscultation bilaterally Cardio Rate: regular rate Rhythm: regular rhythm Heart sounds: S1 normal heart sound present and S2 normal heart sound present GI Palpation (GI): Soft to palpation and nontender Auscultation: normal bowel sounds Skin General skin exam: rashes and/or lesions noted Assessment & Plan Assessment & Plan (1) COPD (chronic obstructive pulmonary disease): Code(s): J44.9 - Chronic obstructive pulmonary disease, unspecified Category: Medical Qualifiers: COPD type: emphysema Emphysema type: centrilobular Qualified Code(s): J43.2 - Centrilobular emphysema (2) Pulmonary nodules: Code(s): R91.8 - Other nonspecific abnormal finding of lung field Category: Medical (3) Dystonia: Code(s): G24.9 - Dystonia, unspecified Category: Medical (4) Costochondritis: Code(s): M94.0 - Chondrocostal junction syndrome [Tietze] Category: Medical (5) Chest pain: Code(s): R07.9 - Chest pain, unspecified Category: Medical Qualifiers: Chest pain type: pleurodynia Qualified Code(s): R07.81 - Pleurodynia Plan CPET to address her on going dyspnea demonstrated a cardiovascular limitation. CT chest noted new 7mm pleural based RLL nodule and new LLL pleural based nodules. Will repeat CT chest at [facility] in September 2024 PSG was normal mouth piece provided wto use while exercising did not work Trial Symbicort F/U 4-5 months Orders: Orders CT chest wo IV con 09/27/24 R91.8 - Other nonspecific abnormal finding of lung field Medications: New budesonide-formoterol 160-4.5 mcg/actuation (Symbicort) 2 puffs inhalation BID 30 days 10.2 grams 11RF J44.89 - Other specified chronic obstructive pulmonary disease Coding Level of Care Code Est Pt Level 4 (18796) Complex EM visit Add On G2211 Diagnoses Centrilobular emphysema J43.2 COPD type: emphysema Emphysema type: centrilobular Pulmonary nodules R91.8 Dystonia G24.9 Costochondritis M94.0 Pleurodynia R07.81 Chest pain type: pleurodynia Time Spent (min) 20
--- OUTSIDE RECORDS SUMMARY | 2024-07-19 09:16 | XMS_ITS | Encounter Summary ---
Author Organization Formerly [facility] Address [address] [place] [address] Care Team Providers Care Dietary Aide Teacher Name Role Phone Lenore Hensley MD Primary Care Provider [phone] Encounter Details Date Type Department Care Team (Late st Contact Info) Description 05/20/2022 Scanned Document [facility] Neurology [address] [phone] Win Cristobal MD [address] [address] Social History Tobacco Use Types Packs/Day Years Used Date Smoking Tobacco: Former Cigarettes Q uit: 2016 Smokeless Tobacco: Former Alcohol Use Standard Drinks/Week Comments Yes 0 (1 standard drink = 0.6 oz pur e alcohol) socially 1-2 drinks Comments No Sex and Gender Information Value Date Recorded Sex Assigned at Female 11/12/2022 1:43 PM EDT Legal Sex Female 1:45 PM EST Gender Identity Not on file Sexual Orientation Heterosexual (straight) 11/12 1:43 PM EDT documented as of this encounter Plan of Treatment Upcoming Encounters Date Type Department Care Team (Late st Contact Info) Description 07/27/2024 4:00 PM EDT Procedure visit [facility] Neurology [address] [phone] Win Cristobal MD 35 [facility] [address] [place], [place] [id number] 11/02/2024 3:20 PM EDT Procedure visit [facility] Neurology [place] [address] [facility] [address] [place] [phone] Win Cristobal MD 35 [facility] [address] [place] [address] documented as of this encounter Visit Diagnoses Not on filedocumented in this encounter Care Teams Dietary Aide Teacher Relationship Specialty Start Date End Date Lenore Hensley MD [address] [place] [address] [address] [place] [address] PCP - General Family Medicine 01/29/21 documented as of this encounter
== END 2024-07-19 09:51 | disposition home or self-care (01) ==
LOC: HO.HPS 08:50
PROVIDERS: PCP Physician Assistant; Visit Provider Hospitalist
DX: J43.2 Centrilobular emphysema (principal); R91.8 Other nonspecific abnormal finding of lung field; G24.9 Dystonia, unspecified; M94.0 Chondrocostal junction syndrome [Tietze]; R07.81 Pleurodynia
CPT/HCPCS: 99214; G2211

== ENCOUNTER → 2024-07-19 08:50 | Outpatient (BNVA) | payer MEDICARE, SELFPAY | PROVIDERS: PCP Physician Assistant; Visit Provider Hospitalist | DX: J43.2 Centrilobular emphysema (principal); J44.89 Other specified chronic obstructive pulmonary disease; R91.8 Other nonspecific abnormal finding of lung field; G24.9 Dystonia, unspecified; M94.0 Chondrocostal junction syndrome [Tietze]; R07.81 Pleurodynia; Z87.891 Personal history of nicotine dependence | CPT/HCPCS: 99212 ==

== ENCOUNTER 2024-10-05 15:37 | Outpatient (AMB) | payer MEDICARE, SELFPAY ==
--- OUTSIDE RECORDS SUMMARY | 2023-07-18 07:00 | XMS_ITS ---
Author Organization [facility] Address [address] [place] [address] Care Team Providers Care Business Mgr Name Role Phone LYNN ESTRADA PA-C Primary Care Provider Georgiana Lau [phone] REASON FOR VISIT Annual [employer] Physical Encounters Encounter Location Date Provider Diagnosis [facility] [address] [place] [address] 07/18/2023 Georgiana Fernandez Plan Of Treatment Next Appt Details Provider Name:Georgianareba santosrosy, 10/07/2024 01:40:00 PM, [address], [address], [place], [address], Progress Notes * CARMEN DESAIADOB:[birth year] (64 yo F)Acc No.[id number]:07/18/2023 PROGRESS NOTES Patient: Hua AGUILARRAINER BryantSUKI Appointment Provider: Hua Fernandez M.D. :1960 A ge:63 Y S ex:Female Date:07/18/2023 Address:[address] [place], [place] [id number] Pcp:LYNN ESTRADA PA-C Subjective: * Chief Complaints: * 1 . Annual [employer] Physical. * Medical History: Objective: * Vitals: Assessment: Plan: * Treatment: * Images: Billing Information: * Visit Code: * Procedure Codes: * Electronic signature of Gabi Fernandez MD on 10/05/2024 at 04:55 PM EDT Sign off status: Pending * Appointment Provider: Hua Fernandez M.D. Date: 0 07/18/2023 Generated for Leola khalil/José/Rosie on: 0 10/05/2024 04:55 PM EDT
[2024-10-05 15:39] VITALS: BP 94/60; PULSE 68; O2SAT 97; BMI 23.9
--- NOTE | 2024-10-05 15:39 | A.OFFVIS_ITS ---
Vital Signs 10/05/24 15:39 Height 5 ft 3 in Weight 135 lb BMI 23.9 BP 94/60 Blood Pressure Location Rt brachial Position Sitting Pulse 68 Pulse Source Pulse Oximeter Pulse Oximetry (%) 97 Oxygen Delivery Method Room Air Intake Visit Reasons: COPD Allergies No Known Allergies Allergy (Verified 10/05/24 15:44) HPI Comments Details: The patient is a 64-year-old woman with a known history of pulmonary nodules and history of smoking history with a new diagnosis of dystonia that she has been dealing with currently getting Botox shot to her jaw. When she walks a goes up hills or flights of stairs she does get more shortness of breath. It a becomes that her dystonia causes more shifting of her jaw and to some degree obstructing the upper airway causing her to have a hard time with her breathing due to increased resistance. She does use a mouth guard due to her grinding. We did look at her CT scan of the chest that she had back in March 2019 this was a low-dose steroid radiation CT scan demonstrated no evidence of any lymphadenopathy and she does have bilateral pulmonary nodules. Based on the fact that the have been stable she will get a CT scan in a year's time. In the office we did do spirometry demonstrating normal flow volume loop without any evidence of any dynamic extrathoracic or intrathoracic obstruction at this time. 02/21/2023 the patient is here for a pulmonary follow-up visit. The patient overall is no better. She continues to have the significant shortness of breath with Exertion. She has a hard time in the gym. I do believe that most of her symptoms are due to the distal new resulting in a dynamic upper airway obstruction. She has already had if will cardiac workup. She was severity evaluated by GI without any significant findings. The patient has been describing also some right and left upper abdominal discomfort, but, now migrating now more in the epigastric area and xiphoid area. The area is very tender. When she does cross training becomes very uncomfortable at times. It appears to be musculoskeletal as well. It is pretty much reproducible my examination suggesting that is costochondritis. During the office visit we did go for a walking oximetry test we did go 5 flights of stairs. The patient was able to complete the 5 flights although she was winded with dyspnea score of 7/10. Pulse ox is stable she definitely had the facial dystonia during the increase exercise. Heart rate did increase to 130 beats per minute which may also be contributing. At this point the patient would like to get answers. Will go ahead and request an exercise tolerance test at [facility]. In addition to that she does wake up short of breath. She does have increased daytime drowsiness with an [place] score of 10/24. Will go ahead and request a home sleep study at this time. 05/16/2023 the patient is here for a pulmonary follow-up visit. She continues to have dyspnea on exertion. moderate severity. In part has do with her dystonia limiting her upper ventilation. She did undergo a cardiopulmonary exercise tolerance test at [facility]. She did wear a mouthpiece. While wearing the mouthpiece she did feel like she could actually exercise longer than usual which is reassuring. Although she did not meet her aerobic capacity. The big gest limitation was more of a cardiovascular limitation. The heart rate the not reach peak in yet, but, the patient could no longer exercise as she did her maximum exercise capacity. She had plenty of pulmonary reserve suggesting that it was not a pulmonary limitation. Again, the mouthpiece did help her breathing. I did provide her a mouth guard that she can use while exercising in the home that will allow her upper airway to stay patent while she develops significant dystonia. She does have a nurse wound. She recently was seen by nurse wound. And from a cardiac standpoint seems like the patient is doing well. In view of the abnormal cardiopulmonary exercise tolerance test, however, consider repeating her cardiac stress test potentially a nuclear stress test to further follow-up the abnormal findings. The patient also continues to have chest discomfort. Appears to be musculoskeletal in nature. I suspect that probably would be related to diaphragmatic spasms. Although, now appears to be migrating up. I will request a bone scan to see if there is any skeletal etiologies to explain her chest discomfort at this time. 10/14/2023 the patient is here for a pulmonary follow-up visit. Overall she is doing okay. The mouthpiece did not help her. She still has a significant dystonia does affecting her exercise capacity. She does use Botox with partial improvement in addition to that she has been on baclofen. Still having some difficulties. she also been having left-sided lower chest discomfort likely diaphragmatic involvement. She did undergo a bone scan no evidence of any bone meds. She does have some areas of arthritis but nothing to explain her underlying chest pain. The patient also had CT scans of the chest without any parenchymal disease or pleural based disease to explain her chest pain. She also underwent a cardiopulmonary exercise tolerance test was reassuring. The weathers issue is mainly the upper airway obstruction due to the significant dystonia with exercise. The patient has not tried Flexeril. We can try small dose of Flexeril of 2.5-5 mg to try to help her with her significant muscle spasms with the hope that the small dose does not cause significant daytime drowsiness. If she does develop daytime drowsiness she is going to have to stop medicine the patient sure that drive or be driving while on Flexeril. 07/19/2024 the patient is here for a pulmonary follow-up visit. She still complaining of the difficulty breathing. She does have the actual with dystonia causing airway resistance that can cause him to have some difficulty with exhalation and also her inhalation. The patient does have some mosaic pattern CAT scan so therefore will start her on Symbicort see this provides some relief as well. In the meantime the patient is still complains of the upper abdominal lower chest discomfort. Thought to be related as well the patient did have a CT scan of the chest which I personally reviewed back in May 2024 and did compared to her CAT scan from 2023. She appears to have new findings including a 7 mm pleural-based pulmonary nodule in the right lower lobe and a smaller 1 or smaller couple once on the left side as well. These are new findings that were not seen on previous CT scan although the radiologist did not read the results in the very limited report that was provided. Therefore, based on the size of the nodular density that I knew will go ahead and repeat a CAT scan 4 months from the last which will be in August. Will follow-up and will get her to a different Radiology place and she is very uncomfortable with the fact that the did not document significant nodules noted. Will follow-up CAT scan she has not issues prior to this she will call for an earlier assessment. 10/05/2024 the patient is here for pulmonary follow-up visit. Overall the patient has been doing okay. She has not started the inhalers as of yet. I did advise her to start Wixela once day and to rinse and gargle her mouth. Apparently she does have mold in the house. She has some evidence of toxins of mold in her blood test. 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 We can request additional laboratory data to assess to see allergies to the different molds and other environmental allergens. In the meantime the patient will start the inhalers she knows it will help as well. She is concerned about was causing her dyspnea. I do believe that is the dystonia causing upper airway obstruction. Although she does have small airways disease and a suspicion of asthma as well as a history emphysema noted on CAT scan. Although she does not have a fixed obstruction to suggest COPD per se. The patient also had a bone scan done specially because she was having significant abdominal and chest discomfort. And it appears that she has significant arthritic 80s. She is aware this. The patient also underwent a coronary CT scan at [facility]. She appears to have syncopal coronary artery disease disease. She will monitor closely this findings with Cardiology. Also, RLL nodule is resolveds. [facility] Medical History (Updated 10/05/24 @ 21:23 by Luis Griffin MD) Allergy Costochondritis Dystonia Spasm of diaphragm COPD (chronic obstructive pulmonary disease) Pulmonary nodules Personal history of nicotine dependence Chest pain Hyperlipidemia Coronary artery calcification Mild ascending aorta dilatation History of bacterial meningitis in childhood Surgical History (Updated 12/26/22 @ 11:01 by Kayleigh Reardon PA-C) History of knee surgery History of carpal tunnel surgery of left wrist History of shoulder replacement History of 2 sections Social History Patient Tobacco Use Status: Former Tobacco user Tobacco use type: Cigarette Years Smoked: 17 years old Review of Systems Const Reports difficulty sleeping and Denies night sweats ENT Denies change in voice, Reports facial pain, Denies lip swelling, Denies mouth pain, Reports nasal congestion, Reports nasal discharge, Reports neck pain and Denies tongue swelling Card Reports chest pain, Reports dyspnea and Reports dyspnea on exertion Resp Reports cough, Reports dyspnea and Reports dyspnea on exertion GI Reports abdominal pain, Reports GI cramping and Reports dyspepsia Musc Reports myalgias, Reports arthralgias and Reports neck pain Neuro Denies Neuro-related abnormal movements Psych Denies no additional complaints Josse/Lymph Denies easy bleeding and Denies lymphadenopathy Aller/Immun Denies lip swelling and Denies tongue swelling Physical Exam Vital Signs: Last Vital Signs Pulse 68 10/05/24 15:39 BP 94/60 10/05/24 15:39 Pulse Ox 97 10/05/24 15:39 Oxygen Delivery Method Room Air 10/05/24 15:39 BMI result Body Mass Index 23.9 Const General: alert HEENT Head: Yes other (facial dystonic, severe with activity) Neck Neck: Yes normal visual inspection, Yes full ROM and Yes no lymphadenopathy Chest Chest palpation & inspection: localized rib tenderness with anteroposterior compression Resp Auscultation: clear to auscultation bilaterally Cardio Rate: regular rate Rhythm: regular rhythm Heart sounds: S1 normal heart sound present and S2 normal heart sound present GI Palpation (GI): Soft to palpation and nontender Auscultation: normal bowel sounds Skin General skin exam: rashes and/or lesions noted Assessment & Plan Assessment & Plan (1) COPD (chronic obstructive pulmonary disease): Code(s): J44.9 - Chronic obstructive pulmonary disease, unspecified Category: Medical Qualifiers: COPD type: emphysema Emphysema type: centrilobular Qualified Code(s): J43.2 - Centrilobular emphysema (2) Pulmonary nodules: Code(s): R91.8 - Other nonspecific abnormal finding of lung field Category: Medical (3) Dystonia: Comment: Likely resulting in an upper airway obstruction with exercise Code(s): G24.9 - Dystonia, unspecified Category: Medical (4) Costochondritis: Code(s): M94.0 - Chondrocostal junction syndrome [Tietze] Category: Medical (5) Chest pain: Code(s): R07.9 - Chest pain, unspecified Category: Medical Qualifiers: Chest pain type: pleurodynia Qualified Code(s): R07.81 - Pleurodynia (6) Allergy: Code(s): T78.40XA - Allergy, unspecified, initial encounter Category: Medical Qualifiers: Encounter type: initial encounter Qualified Code(s): T78.40XA - Allergy, unspecified, initial encounter Plan CPET to address her on going dyspnea demonstrated a cardiovascular limitation. CT chest noted new 7mm pleural based RLL nodule and new LLL pleural based nodules. now resolved bloodwork, allergy testing mouth piece provided wto use while exercising did not work Trial Wixela F/U 8-12 months Orders: Orders Resp Allergy Profile Region I Today R07.81 - Pleurodynia, R91.1 - Solitary pulmonary nodule, T78.40XA - Allergy, unspecified, initial encounter Basic Metabolic Panel Today R07.81 - Pleurodynia, T78.40XA - Allergy, unspecified, initial encounter Erythrocyte Sedimentation Rate Today R07.81 - Pleurodynia, T78.40XA - Allergy, unspecified, initial encounter RAINER Reflex Titer and Pattern Today R07.81 - Pleurodynia, T78.40XA - Allergy, unspecified, initial encounter Complete Blood Count Auto Diff Today R07.81 - Pleurodynia, T78.40XA - Allergy, unspecified, initial encounter Immunoglobulin E Today R07.81 - Pleurodynia, T78.40XA - Allergy, unspecified, initial encounter Hypersensitive Pneumonitis Prf Today R07.81 - Pleurodynia, R91.8 - Other nonspecific abnormal finding of lung field, T78.40XA - Allergy, unspecified, initial encounter Immunoglobulins,IgG IgA IgM Today R07.81 - Pleurodynia, T78.40XA - Allergy, unspecified, initial encounter Coding Level of Care Code Tele New Pt Level 4 (15506) Complex EM visit Add On G2211 Diagnoses Centrilobular emphysema J43.2 COPD type: emphysema Emphysema type: centrilobular Pulmonary nodules R91.8 Dystonia G24.9 Costochondritis M94.0 Pleurodynia R07.81 Chest pain type: pleurodynia Allergy, initial encounter T78.40XA Encounter type: initial encounter Time Spent (min) 20
--- OUTSIDE RECORDS SUMMARY | 2024-10-05 16:55 | XMS_ITS | Clinical Summary ---
Author Organization [address] Address [address] [place] [phone] Phone Care Team Providers Care Supervisor Filling And Packing Name Role Phone Lenore Hensley MD Primary Care Provider [phone] Allergies No known active allergies Medications lactobacillus [...] 75 12/15/2018 9:34 AM EDT Temperature 36.8 C (98.2 F) 12/15/2018 9:34 AM EDT Respiratory Rate - - Oxygen Saturation 98% [...] patient's age to complete this topic [place] [address] [place] [address] Care Teams Supervisor Filling And Packing Relationship Specialty Start Date End Date Lenore Hensley MD PCP - General Internal Medicine 12/15/18
--- OUTSIDE RECORDS SUMMARY | 2024-10-05 16:55 | XMS_ITS | Encounter Summary ---
Author Organization [facility] Address [address] [place], [place] [id number] Care Team Providers Care Plate Grainer Apprentice Name Role Phone Lenore Hensley MD Primary Care Provider [phone] Chirag Salmeron MD Primary Care Provider [phone] Encounter Details Date Type Department Care Team (Late st Contact Info) Description 05/20/2022 Scanned Document [facility] Neurology [address] [phone] Win Cristobal MD [address] [place] [address] Social History Tobacco Use Types Packs/Day [...] Sex Female 1:45 PM EST Gender Identity Female 07/26/2024 2:03 PM EDT Sexual Orientation Heterosexual (straight) 11/12 1:43 PM EDT documented as of this encounter Plan of Treatment Upcoming Encounters Date Type Department Care Team (Late Contact Info) Description 11/02/2024 3:20 PM EDT Procedure visit [facility] Neurology [address] [phone] Win Cristobal MD 35 [facility] 6 [place] [address] 02/01/2025 4:00 PM EST Procedure visit [facility] Neurology [address] [place] [phone] Win Cristobal MD 35 [facility] [address] [place] [address] documented as of this encounter Visit Diagnoses Not on filedocumented in this encounter Care Teams Plate Grainer Apprentice Relationship Specialty Start Date End Date Lenore Hensley MD [address] [facility] [address] [place] [address] PCP - General Family Medicine 01/29/21 07/26/24 Chirag Salmeron MD [address] [facility] [address] [place] [address] PCP - General Internal Medicine 07/27/24 documented as of this encounter
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
--- OUTSIDE RECORDS SUMMARY | 2024-10-05 16:55 | XMS_ITS | Clinical Summary ---
Author Organization [facility] Address [address] [place] [address] Care Team Providers Care Technical Specialist Cytology Name Role Phone Chirag Salmeron MD Primary Care Provider [phone] Allergies No known active allergies Medications No [...] 60 07/30/2023 5:04 PM EDT Temperature 36.6 C (97.9 F) 07/30/2023 5:04 PM EDT Respiratory Rate 18 07/30/2023 5:04 PM EDT [...] of 2) 04/17/2009 COVID-19 Vaccine (3 - season) 2023 04/16/2020, 03/26/2020 Fall Risk Assessment 04/17/2024 Osteoporosis Screening (DEXA Scan) 04/17/2024 Pneumococcal Vaccine (1 of 1 - PCV) 04/17/2024 Influenza Vaccine (#1) 2024 8, 12/12/2014, 03/17/2013, Additional history exists DTap / Tdap / Td (3 - [...] age to complete this topic Care Teams Technical Specialist Cytology Relationship Specialty Start Date End Date Chirag Salmeron MD [address] [id number] PCP - General Engineering Geologist 07/30/23
--- OUTSIDE RECORDS SUMMARY | 2024-10-05 16:55 | XMS_ITS | Encounter Summary ---
Author Organization [facility] With [facility] Address [address] [place] [address] Phone Care Team Providers Care Founder & Ceo Name Role Phone Lenore Hensley MD Primary Care Provider [phone] Jeffery Burris MD Unavailable Encounter Details Date Type Department Care Team (Late st Contact Info) Description 01/07/2023 Procedure Pass [facility], Radio Flouroscopy [address] [place] [address] Social History Tobacco Use Types Packs/Day Years Used Date Smoking Tobacco: Former Cigarettes 1 35 1 - 11/27/2012 Smokeless Tobacco: Former Quit: 2014 Comments:Smoking History Pac ks/day: <=0.5 Alcohol Use Standard Drinks/Week Comments Yes 1 (1 standard drink = 0.6 oz pure alcohol) typically 1 bottle of beer 3-4 nights per week Education Answer Date Recorded Are you interested in more education? Not on rivera e 06/30/2022 Are you concerned about learning? Not on file 06/30/2022 No 06/30/2022 No 06/30/2022 Digital Access Answer Date Recorded No 07/12/2022 No 07/12/2022 No 07/12/2022 Reliable internet access at home? Not on file 07/12/2022 Device with a working camera? Not on file Comments Unknown Sex and Gender Information Value Date Recorded Sex Assigned at Female 12/18/2019 9:52 AM EDT Legal Sex Female 5:39 PM EST Gender Identity Female 12/18/2019 9:52 AM EDT Sexual Orientation Straight 12/18/2019 9: 52 AM EDT documented as of this encounter Plan of Treatment Not on file documented as of this encounter Visit Diagnoses Not on filedocumented in this encounter Care Teams Founder & Ceo Relationship Specialty Start Date End Date Lenore Hensley MD [address] [place] [id number] PCP - General Internal Medicine 11/10/17 Jeffery Burris MD [address] [place] [address] Cardiology 06/28/20 documented as of this encounter Additional Source Comments The information contained in this document represents components of the legal health record. It is not the complete legal health record.[facility]
== END 2024-10-05 16:12 | disposition home or self-care (01) ==
LOC: HO.HPS 15:38
PROVIDERS: PCP Physician Assistant; Visit Provider Hospitalist
DX: J43.2 Centrilobular emphysema (principal); R91.8 Other nonspecific abnormal finding of lung field; G24.9 Dystonia, unspecified; M94.0 Chondrocostal junction syndrome [Tietze]; R07.81 Pleurodynia; T78.40XA Allergy, unspecified, initial encounter
CPT/HCPCS: 99214; G2211

== ENCOUNTER → 2024-10-05 15:37 | Outpatient (BNVA) | payer MEDICARE, SELFPAY | PROVIDERS: PCP Physician Assistant; Visit Provider Hospitalist | DX: J43.2 Centrilobular emphysema (principal); R91.8 Other nonspecific abnormal finding of lung field; G24.9 Dystonia, unspecified; M94.0 Chondrocostal junction syndrome [Tietze]; R07.81 Pleurodynia; T78.40XA Allergy, unspecified, initial encounter | CPT/HCPCS: 99212 ==